=== PATIENT | male | born 1955 | race Caucasian/White ===

== ENCOUNTER 2017-10-14 14:32 | Emergency (ER) | payer MEDICARE, SELFPAY ==
[2017-10-14 14:33] VITALS: BP 100/62; PULSE 106; RESP 18; TEMP 37.7; O2SAT 97; BMI 38.9
[2017-10-14 15:52] LABS: Anion Gap 10 (5-15); BUN 13 mg/dL (7-18); BUN/Creat Ratio 10.1 RATIO (10-20); Calcium,Total 8.9 mg/dL (8.5-10.1); Chloride 102 mmol/L (98-107); Creatinine, Serum 1.29 mg/dL (0.70-1.30); EST Glomerular Filtration Rate 60 mL/min (>60); Est Glom Filt Rate - Afr Amer 73 mL/min (>60); Estimated Creatinine Clearance 62.88 ml/min; Glucose 99 mg/dL (74-106); Potassium 3.3 mmol/L (3.5-5.1); Sodium Level 136 mmol/L (136-145)
[2017-10-14 16:10] LABS: Color, Urine Amber (Yellow); Glucose, Dipstick Normal (Normal); Ketone-Dipstick 15 mg/dl (Negative); Leukocyte Esterase-Dipstick 500 /ul (Negative); Nitrite-Dipstick Positive (Negative); Occult Blood-Urine 25 /ul (Negative); Protein-Dipstick 30 mg/dl (Negative); Urine Bilirubin Dipstick 1 mg/dL (Negative); Urine Clarity Clear (Clear); Urine Urobilinogen 4 mg/dl (Normal)
[2017-10-14 16:11] LABS: Absolute Lymphocyte Count 1.36 X10^3/ul (0.83-4.51); Absolute Neutrophil Count 12.5 X10^3/uL (2.0-7.7); Basophil# 0.02 X10^3/uL; Basophil% 0.1 % (0-1); Eosinophil# 0.06 X10^3/uL; Eosinophils% 0.4 % (0-5); Hematocrit 43.9 % (40-54); Hemoglobin 15.1 g/dl (13.0-16.5); Lymphocyte # 1.36 X10^3/ul (4.0); Lymphocyte % 8.7 % (19-41); Mean Corp Hgb Conc 34.4 g/gl (32-36); Mean Corpuscular Hgb 29.7 pg (27.0-32.0); Mean Corpuscular Volume 86.2 fL (80-94); Mean Platelet Vol. 10.4 fl (6.2-12.0); Monocyte# 1.71 X10^3/uL; Monocyte% 10.9 % (0-10); Neutrophil # 12.46 X10^3/uL (2.7-7.7); Neutrophil % 79.7 % (47-70); Platelet Count 243 K/mm3 (150-450); RBC Distribution Width CV 12.9 % (11.6-14.6); RBC Distribution Width SD 40.9 fl (35.1-43.9); Red Blood Count 5.09 M/mm3 (4.6-6.2); White Blood Count 15.6 K/mm3 (4.4-11.0)
[2017-10-14 16:18] LABS: Differential Indicated SCAN CRITERIA MET; POSITIVE COUNT NO; POSITIVE DIFFERENTIAL YES; POSITIVE MORPHOLOGY NO
[2017-10-14 16:29] LABS: White Blood Cells >100 SEEN /hpf (0-5)
[2017-10-14 16:30] LABS: Bacteria 2+ /hpf (None Seen); Mucous, Urine 3+ /hpf (<or=2+); Red Blood Cells-Urine 0-5 SEEN /hpf (0-5); Squamous Epithelial Cells - UA 0-5 SEEN /hpf (0-5)
[2017-10-14 16:35] LABS: Differential Comment SCANNED
[2017-10-14 16:36] VITALS: BP 114/68; BP 119/75; BP 120/65; PULSE 52; PULSE 84; PULSE 85
[2017-10-14] MEDS: Ondansetron 4 MG/2 ML Vial IV (16:46)
--- NOTE | 2017-10-14 16:50 | ED.VISSUMM ---
- ER Visit Summary Date of Service: 10/14/17 Chief Complaint: Urinary urgency History of Present Illness: The patient is a 62 M with a history of UTI who presents with 2 days of urinary urgency frequency and dysuria. He vomited once last night. He has had nausea today. He reports chills. He was seen at the urgent care and had a temperature 100.2. Reportedly his urine was normal except blood so he was sent here for further evaluation. He denies any abdominal pain back or flank pain. Physical Examination: Temperature 99.9 heart rate 106 Moist mucous membranes Heart regular rhythm slightly tachycardic Lungs are clear Abdomen soft nontender nondistended Test Results: Urinalysis is consistent with UTI. He does have 500 leukocyte esterase positive nitrates greater than 100 WBCs and 2+ bacteria. Serum laboratory studies notable for white blood cell count 15.6. Orthostatic vital signs are negative. Emergency Department Course and Treatment: Patient was on IV Zofran and tolerated a p.o. challenge. Repeat vital signs are normal and orthostatic vital signs are negative. Discussed hospital observation as outpatient management. The patient would prefer to go home. He was given prescriptions for Bactrim, Pyridium, Zofran. He understands to return for new or worsening symptoms and was instructed on specific signs and symptoms to monitor for. He was discharged. Treatment Plan: [] Disposition: Discharge Impression: UTI This note was generated with GoInstant dictation software. It may contain incorrect words, spelling, and punctuation that were not noted in review of the chart prior to signing ED Disposition - Plan for ED Patient: Chief Complaint: Complaint Referrals: Mey Cornelius MD [Primary Care Provider] -
--- NOTE | 2017-10-14 16:54 | ED.DEP ---
ED Disposition - Plan for ED Patient: Chief Complaint: Complaint Instructions: ED UTI Cystitis Male Prescriptions: Ondansetron [Zofran Odt] 4 mg PO Q8H PRN PRN #10 tab PRN Reason: Nausea Phenazopyridine HCl [Pyridium] 200 mg PO BID PRN PRN #10 tab PRN Reason: Pain Smz/Tmp Ds [Bactrim Ds] 1 tab PO BID #14 tab Referrals: Mey Cornelius MD [Primary Care Provider] -
[2017-10-14 17:02] VITALS: BP 124/66; PULSE 78; RESP 18
== END 2017-10-14 17:10 | disposition home or self-care (01) ==
PROVIDERS: Emergency Provider Emergency Medicine; Family Provider Internal Medicine; PCP Internal Medicine
DX: N39.0 Urinary tract infection, site not specified (principal); Z87.440 Personal history of urinary (tract) infections; I10 Essential (primary) hypertension; E78.00 Pure hypercholesterolemia, unspecified; G20 Parkinson's disease; M54.9 Dorsalgia, unspecified; M54.2 Cervicalgia; G89.29 Other chronic pain; Z79.899 Other long term (current) drug therapy
CPT/HCPCS: 80048; 81001; 85025; 87086; 87088; 87186; 96374; 99285; A4216; J2405

== ENCOUNTER 2018-03-01 18:56 | Emergency (ER) | payer MEDICARE, OTHER, SELFPAY ==
[2018-03-01 18:57] VITALS: BP 158/78; PULSE 81; RESP 14; TEMP 36.2; O2SAT 98; BMI 39.4
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
[2018-03-01 22:28] VITALS: BP 124/71; PULSE 66; RESP 16
== END 2018-03-01 22:29 | disposition home or self-care (01) ==
LOC: ED 20:50
PROVIDERS: Emergency Provider Emergency Medicine; Family Provider Internal Medicine; PCP Internal Medicine
DX: S16.1XXA Strain of muscle, fascia and tendon at neck level, initial encounter (principal); F43.10 Post-traumatic stress disorder, unspecified; M54.9 Dorsalgia, unspecified; M25.559 Pain in unspecified hip; Z87.891 Personal history of nicotine dependence; Z79.891 Long term (current) use of opiate analgesic; Z79.899 Other long term (current) drug therapy; V43.62XA Car passenger injured in collision with other type car in traffic accident, initial encounter; Y93.I9 Activity, other involving external motion; Y92.410 Unspecified street and highway as the place of occurrence of the external cause; Y99.8 Other external cause status
CPT/HCPCS: 70450; 72050; 99282

== ENCOUNTER → 2018-03-21 14:18 | Outpatient (CLI) | payer MEDICARE, SELFPAY ==
[2018-03-21 15:39] LABS: Anion Gap 7 (5-15); BUN 21 mg/dL (7-18); BUN/Creat Ratio 19.1 RATIO (10-20); Calcium,Total 9.2 mg/dL (8.5-10.1); Chloride 105 mmol/L (98-107); EST Glomerular Filtration Rate 72 mL/min (>60); Est Glom Filt Rate - Afr Amer 88 mL/min (>60); Glucose 103 mg/dL (74-106); Magnesium 2.2 mg/dL (1.6-2.6); Phosphorus 3.5 mg/dL (2.5-4.9); Potassium 3.3 mmol/L (3.5-5.1); Sodium Level 141 mmol/L (136-145); Vitamin B12 342 pg/mL (211-911)
== END ==
PROVIDERS: Family Provider Internal Medicine; PCP Internal Medicine; Visit Provider Nurse Practitioner Acute Care
DX: G20 Parkinson's disease (principal); R20.2 Paresthesia of skin; R20.0 Anesthesia of skin
CPT/HCPCS: 36415; 80048; 82607; 82746; 83735; 84100

== ENCOUNTER 2018-04-14 16:00 | Outpatient (RCR) | payer OTHER, MEDICARE, SELFPAY ==
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
--- NOTE | 2018-05-04 11:51 | HP.PTDCNRP_ITS ---
HP - Discharge Summary (1) - Patient Information LUCILLE GARCIA was seen in my office for initial evaluation on 03/24/18. The following Plan of Care was established for this patient: Initial Frequency: Monthly Initial Duration: 3 Months - Anticipated Interventions Patient/Client Instruction: Educate patient on: Condition, Plan of Care For the Purpose of:: To improve ability of physical actions for home/community/ work/leisure, To improve gait and locomotor functions, To improve health of tissue, To improve safety Therapeutic Exercise to Include: Strength training, Balance training, Flexibilty training, Active ROM For the Purpose of:: To improve ability of physical actions for home/community/ work/leisure, To improve gait and locomotor functions This patient was last seen in our office 03/24/18. Pertinent comments regarding their Physical therapy will appear below: Pt called to cancel as he is having home PT now instead. At this point I will be discontinuing this patient from physical therapy. I would be happy to see this patient again in the future if found appropriate by the physician. Thank you! Zack King, DPT, OC
--- NOTE | 2018-05-05 16:20 | HP.SP.DC_ITS ---
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 At this time, the Patient has cancelled all sessions; will discharge from the caseload at this time, though would gladly re-initiate the intervention cycle after a physician?s order is obtained and a re-evaluation is completed.
== END 2018-04-14 19:00 | disposition home or self-care (01) ==
LOC: SP 16:00
PROVIDERS: Family Provider Internal Medicine; PCP Internal Medicine; Visit Provider Nurse Practitioner Acute Care
DX: G20 Parkinson's disease (principal); R26.0 Ataxic gait; R13.12 Dysphagia, oropharyngeal phase; R47.02 Dysphasia
CPT/HCPCS: 92523; 92610; 97110; 97162

== ENCOUNTER 2019-03-31 18:54 | Emergency (ER) | payer MEDICARE, SELFPAY ==
[2019-03-31 18:55] VITALS: BP 124/72; PULSE 74; RESP 16; TEMP 37.2; O2SAT 95; BMI 38.0
--- NOTE | 2019-03-31 20:38 | US_ITS ---
STUDY: VENOUS DOPPLER ULTRASOUND - RIGHT LOWER EXTREMITY REASON FOR EXAM: Male, 63 years old. Swelling TECHNIQUE: Ultrasound evaluation of the deep vein system to include schmidt-scale imaging and compression was performed. Schmidt-scale imaging and Doppler sonographic evaluation, including duplex spectral analysis and qualitative color flow sonography, was performed. COMPARISON: None. FINDINGS: Common Femoral Vein: Normal compression, spontaneity and augmentation. Normal color Doppler. Common Femoral Vein/Greater Saphenous Junction: Normal compression, spontaneity and augmentation. Normal color Doppler. Deep Femoral Vein: Normal compression, spontaneity and augmentation. Normal color Doppler. Femoral Proximal: Normal compression, spontaneity and augmentation. Normal color Doppler. Femoral Middle: Normal compression, spontaneity and augmentation. Normal color Doppler. Femoral Distal: Normal compression, spontaneity and augmentation. Normal color Doppler. Popliteal Vein: Normal compression, spontaneity and augmentation. Normal color Doppler. Posterior Tibial Vein: Normal compression, spontaneity and augmentation. Normal color Doppler. Peroneal Vein: Normal compression, spontaneity and augmentation. Normal color Doppler. Incidental finding of small anechoic area in the calf possibly representing hematoma. US/Venous Duplex Imag/Limited/Uni IMPRESSION: No evidence for deep venous thrombosis. Electronically Signed: Gary Goodman MD at 21:19 EDT , Service support ,
--- NOTE | 2019-03-31 21:25 | ED.VISSUMM ---
- ER Visit Summary Date of Service: 03/31/19 Chief Complaint: Right leg pain History of Present Illness: The patient is a 63 M who presents with right leg pain that has been getting worse over the past 4 days. Patient states he hit his right leg on a trailer hitch. Patient states the pain and swelling is gotten worse. Patient went to urgent care today and was referred to the emergency department for possible DVT. Patient denies any fevers or chills. Patient denies any paresthesias or weakness. Patient denies any other injuries. Physical Examination: Vital signs are stable. Patient is afebrile. Patient is in no acute distress. Skin is warm and dry. There is some ecchymosis over the anterior aspect of the right leg. There is some edema. There is some mild tenderness over the right calf. Pedal pulses are equal bilaterally. There are no sensory deficits noted. There is some pain with dorsiflexion of the ankle. Test Results: Venous duplex of the right lower extremity was obtained. There is no evidence of DVT. Emergency Department Course and Treatment: Patient was instructed to ice and elevate the right leg. Patient was instructed to follow-up with his primary care physician in 5 to 7 days. Patient understood and was agreeable with the plan. All questions were answered. Disposition: Discharge home Impression: Right leg contusion This note was generated with [employer] dictation software. It may contain incorrect words, spelling, and punctuation that were not noted in review of the chart prior to signing ED Disposition - Plan for ED Patient: Disposition: Home or Assisted Living Diagnosis: Contusion of right lower leg, initial encounter Instructions: CONTUSION, Lower Extremity Referrals: Mey Cornelius MD [Primary Care Provider] - 5-7 Days
== END 2019-03-31 21:44 | disposition home or self-care (01) ==
PROVIDERS: Emergency Provider Emergency Medicine; Family Provider Internal Medicine; PCP Internal Medicine
DX: S80.11XA Contusion of right lower leg, initial encounter (principal); W22.8XXA Striking against or struck by other objects, initial encounter; Y93.9 Activity, unspecified; Y92.9 Unspecified place or not applicable; M54.9 Dorsalgia, unspecified; M54.2 Cervicalgia; G89.29 Other chronic pain; G20 Parkinson's disease; Z79.899 Other long term (current) drug therapy
CPT/HCPCS: 93971; 99282

== ENCOUNTER → 2019-04-07 | Outpatient (CLI) | payer MEDICARE, SELFPAY ==
[2019-03-31 18:55] VITALS: BMI 38.0
--- NOTE | 2019-04-07 11:11 | RAD_ITS ---
STUDY: X-RAY - RIGHT ANKLE REASON FOR EXAM: Male, 63 years old. Pain. TECHNIQUE: 4 view(s) of the ankle. COMPARISON: None. FINDINGS: Normal visualized distal tibia and fibula. Normal medial and lateral malleoli. Normal tibiotalar articulation and ankle mortise. Normal visualized talus and calcaneus. There are degenerative changes of the midfoot. The soft tissue structures are unremarkable. RAD/Ankle min 3 Views IMPRESSION: Degenerative changes. Electronically Signed: Melinda Chavez MD at 17:02 EDT Tel , Service support ,
--- NOTE | 2019-04-07 11:11 | RAD_ITS ---
STUDY: X-RAY - RIGHT FOOT CLINICAL: Male, 63 years old. Right lower extremity pain and swelling after falling off a truck 2 weeks ago. TECHNIQUE: 3 view(s) of the foot. COMPARISON: None. FINDINGS: Normal talus, calcaneus, and tarsal bones. The intertarsal articulations are within normal limits. Normal metatarsi. There is degenerative arthrosis of the metatarsophalangeal joint of the hallux . Normal tibial and fibular sesamoid bones. Normal interphalangeal joint of the great toe. Normal phalanges of the great toe. Normal second through fifth metatarsophalangeal joints. Normal interphalangeal joints and phalanges of the lesser toes. There is soft tissue swelling. There is a small ankle effusion. There is no demonstrated fracture. RAD/Foot min 3 Views IMPRESSION: 1. No radiographic evidence for acute or healing fracture. 2. 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 3. Calcaneal spurs. Electronically Signed: Tammi Chapin MD at 6:30 EDT , Service support ,
--- NOTE | 2019-04-07 11:15 | RAD_ITS ---
STUDY: X-RAY - RIGHT TIBIA AND FIBULA REASON FOR EXAM: Male, 63 years old. Pain in mid right lower leg. TECHNIQUE: 4 view(s) of the tibia and fibula were obtained. COMPARISON: None. FINDINGS: Normal visualized tibia. Normal visualized fibula. The soft tissue structures are unremarkable. RAD/Tibia & Fibula 2 Views IMPRESSION: No acute osseous injury. Electronically Signed: Melinda Chavez MD at 17:09 EDT Tel , Service support ,
== END | disposition home or self-care (01) ==
LOC: RAD 11:09
PROVIDERS: Family Provider Internal Medicine; PCP Internal Medicine; Referring Provider Nurse Practitioner Family; Visit Provider Nurse Practitioner Family
DX: M79.661 Pain in right lower leg (principal); M79.671 Pain in right foot; W19.XXXA Unspecified fall, initial encounter
CPT/HCPCS: 73590; 73610; 73630

== ENCOUNTER 2019-12-16 19:09 | Emergency (ER) | payer MEDICARE, SELFPAY ==
[2019-12-16 19:10] VITALS: BP 109/36; PULSE 61; RESP 18; TEMP 36.4; O2SAT 93; BMI 38.7
[2019-12-16 19:24] VITALS: O2SAT 97
[2019-12-16 19:25] VITALS: BP 122/74; PULSE 21; RESP 27; TEMP 36.6; O2SAT 97
--- NOTE | 2019-12-16 19:26 | EKG12_ITS ---
Test Reason : DYSRHYTHMIA Blood Pressure : / mmHG Vent. Rate : 084 BPM Atrial Rate : 084 BPM P-R Int : 126 ms QRS Dur : 086 ms QT Int : 362 ms P-R-T Axes : 059 050 025 degrees QTc Int : 427 ms Normal sinus rhythm with sinus arrhythmia Normal ECG Confirmed by DAVI CARLSON, ELMIRA ([id number]), features editor CHRIS RAMIREZ ([id number] on 12/18/2019 10:04:14 AM Referred By: MAI Confirmed By:ELMIRA TOMLINSON MD
--- NOTE | 2019-12-16 19:28 | ED.DCSUM_ITS ---
- ER Visit Summary Date of Service: 12/16/19 Chief Complaint: Shortness of breath and cough History of Present Illness: The patient is a 64 M past medical history of hypertension and Parkinson's disease. Patient's had prior appendectomy and cervical fusion. He states for the last week he has had a nonproductive cough. He believes he was started on Augmentin yesterday. States has had subjective fever and diarrhea for 3 days. Denies vomiting. No hemoptysis. No chest pain. No prior DVT or PE. No calf pain or swelling. has similar symptoms at home. Son had similar symptoms. Physical Examination: Older male no acute distress vital signs stable afebrile. Pulse ox 93% on room air no hypoxia. H EENT exam unremarkable. Neck nontender. Lungs clear to auscultation bilaterally. No rales, rhonchi or wheezing. Equal symmetrical. No distress. Heart regular rate and rhythm no murmur. Abdomen soft nontender. Extremities moves all 4. Calves are nontender without edema or cords. Neurologically is awake and alert with no focal motor deficits. Test Results: Chest x-ray shows a right midlung opacity consistent with infiltrate. This will be treated as pneumonia. EKG sinus rhythm rate [address] acute signs of CT or ischemia. CBC white count of 6. Hemoglobin 15. Electrolytes unremarkable potassium 3.4. Creatinine 1.35 normal gap. Troponin normal. I did speak to [facility] they have okayed the patient for COVID testing which is been done and sent. That will return in 24 to 48 hours. Emergency Department Course and Treatment: Patient with cough and shortness of breath. Family members with similar symptoms at home. Viral URI versus pneumonia versus rule out COVID. Due to the infiltrate in the right middle lobe be instructed to continue on his current antibiotic Augmentin which he is taken twice a day. I did explain to the patient this still could be COVID-19. Treatment Plan: To new his home antibiotic Augmentin.. Follow-up with his doctor this week. Return if feeling worse. Disposition: Discharge Impression: Acute cough with shortness of breath secondary to community-acquired right middle lobe pneumonia Rule out COVID This note was generated with [employer] software. It may contain incorrect words, spelling, and punctuation that were not noted in review of the chart prior to signing ED Disposition - Plan for ED Patient: Disposition: Home or Assisted Living Instructions: Pneumonia Prescriptions: levoFLOXacin tablet [Levaquin tablet] 750 mg PO DAILY #4 tab Prescription Printed Referrals: Mey Cornelius MD [Primary Care Provider] - 3-5 Days Additional Instructions: Plenty of fluids and rest. Tylenol for any fever. The antibiotic Levaquin once a day for 4 more days. You were given your first dose here. Take it tomorrow after lunch. Chest x-ray looks like an early right middle lobe pneumonia. This is why retreating with antibiotics. This does not rule out the possibility of this s till being COVID-19. That test was sent to the [facility] and the results should be back in 24 to 48 hours. Follow-up with your doctor in the next several days. Return to the emergency department if you are feeling worse.
--- NOTE | 2019-12-16 19:35 | RAD_ITS ---
STUDY: X-RAY CHEST REASON FOR EXAM: Male, 64 years old. fever, cough, SOB x1 week. dizzy and weak. n/v/d x3 days TECHNIQUE: Single AP portable view of the chest. COMPARISON: None. FINDINGS: No pleural effusion. Faint opacity in the right midlung, concerning for pneumonia. The lungs are otherwise clear. Normal size heart. Normal mediastinum and janel. Normal visualized pulmonary arteries. Normal visualized aortic arch and descending thoracic aorta. Normal visualized thoracic spine. Normal visualized ribs, clavicles, and shoulders. There is no demonstrated abnormality of the visualized soft tissue structures of the upper abdomen. RAD/Chest 1 View (Portable) IMPRESSION: Faint right midlung opacity, concerning for pneumonia. Typical and atypical etiologies should be considered. Electronically Signed: Yue Valderrama MD at 20:04 EDT Tel , Service support ,
[2019-12-16 19:38] LABS: Absolute Lymphocyte Count 0.62 X10^3/uL (0.83-4.51); Absolute Neutrophil Count 4.7 X10^3/uL (2.0-7.7); Basophil# 0.01 X10^3/uL; Basophil% 0.2 % (0-1); Eosinophil# 0.08 X10^3/uL; Eosinophils% 1.3 % (0-5); Hematocrit 45.7 % (40-54); Hemoglobin 15.8 g/dL (13.0-16.5); Lymphocyte # 0.62 X10^3/ul (4.0); Lymphocyte % 10.1 % (19-41); Mean Corp Hgb Conc 34.6 g/dL (32-36); Mean Corpuscular Volume 86.7 fL (80-94); Mean Platelet Vol. 10.5 fl (6.2-12.0); Monocyte# 0.69 X10^3/uL; Monocyte% 11.3 % (0-10); NRBC Flagged by Analyzer 0 % (0-5); Neutrophil % 76.8 % (47-70); POSITIVE MORPHOLOGY YES; Platelet Count 199 K/mm3 (150-450); RBC Distribution Width CV 12.4 % (11.6-14.6); RBC Distribution Width SD 39.4 fl (35.1-43.9); Red Blood Count 5.27 M/mm3 (4.6-6.2); White Blood Count 6.1 K/mm3 (4.4-11.0)
--- NOTE | 2019-12-16 19:41 | NURSING ---
called the [facility] to approve for testing- covid 19 proper paperwork filled out, respiratory is aware and the microbiology speciman submission form has been completed and will be sent with the sample.
[2019-12-16 19:56] LABS: Anion Gap 9 (5-15); BUN 16 mg/dL (7-18); BUN/Creat Ratio 11.9 RATIO (10-20); Calcium,Total 8.8 mg/dL (8.5-10.1); Chloride 104 mmol/L (98-107); Creatinine, Serum 1.35 mg/dL (0.70-1.30); EST Glomerular Filtration Rate 57 mL/min (>60); Est Glom Filt Rate - Afr Amer 69 mL/min (>60); Estimated Creatinine Clearance 58.58 ml/min; Glucose 122 mg/dL (74-106); Potassium 3.4 mmol/L (3.5-5.1); Sodium Level 137 mmol/L (136-145)
[2019-12-16 19:57] VITALS: BP 134/86; PULSE 83; RESP 19; O2SAT 94
[2019-12-16 20:01] LABS: Differential Indicated SCAN CRITERIA MET
[2019-12-16 20:31] VITALS: BP 133/74; PULSE 82; RESP 20; TEMP 36.6; O2SAT 95
--- NOTE | 2019-12-16 20:32 | DCINST.ED_ITS ---
ED Disposition - Plan for ED Patient: Disposition: Home or Assisted Living Instructions: Pneumonia Prescriptions: levoFLOXacin tablet [Levaquin tablet] 750 mg PO DAILY #4 tab Prescription Printed Referrals: Mey Cornelius MD [Primary Care Provider] - 3-5 Days Additional Instructions: Plenty of fluids and rest. Tylenol for any fever. Continue your current home antibiotic Augmentin twice a day till gone. Chest x-ray looks like an early right middle lobe pneumonia. This is why retreating with antibiotics. This does not rule out the possibility of this still being COVID-19. That test was sent to the [facility] and the results should be back in 24 to 48 hours. Follow-up with your doctor in the next several days. Return to the emergency department if you are feeling worse.
[2019-12-16 20:54] VITALS: BP 118/87; PULSE 86; RESP 19; O2SAT 96
--- NOTE | 2019-12-17 18:29 | ED.RN ---
pt contacted about positive covid test
== END 2019-12-16 20:54 | disposition home or self-care (01) ==
PROVIDERS: Emergency Provider Emergency Medicine; PCP Internal Medicine
DX: U07.1 COVID-19 (principal); J12.89 Other viral pneumonia; G20 Parkinson's disease; I10 Essential (primary) hypertension; Z87.891 Personal history of nicotine dependence; Z79.899 Other long term (current) drug therapy
CPT/HCPCS: 71045; 80048; 84484; 85025; 87635; 93005; 99285; G2023; U0004

== ENCOUNTER → 2019-12-22 | Outpatient (CLI) | payer MEDICARE, SELFPAY ==
[2019-12-16 19:10] VITALS: BMI 38.7
--- NOTE | 2019-12-22 09:00 | RAD_ITS ---
STUDY: X-RAY CHEST REASON FOR EXAM: Male, 64 years old. Pneumonia, positive COVID-19 -- cough, SOB TECHNIQUE: PA and lateral views of the chest. COMPARISON: Comparison is made with prior examination dated December 16, 2019. FINDINGS: Since prior study, there has been progressive ill-defined infiltrates in both lungs preferentially in the peripheral distribution in keeping with the patient''s history of positive for COVID 19. There is no demonstrated pleural abnormality. Normal size heart. Normal mediastinum and janel. Normal visualized pulmonary arteries. Normal visualized aortic arch and descending thoracic aorta. There are diffuse degenerative changes of the visualized thoracic spine. Prior fusion in the lower cervical spine. Normal visualized ribs, clavicles, and shoulders. There is no demonstrated abnormality of the visualized soft tissue structures of the upper abdomen. RAD/Chest PA and Lateral IMPRESSION: Progressive bilateral infiltrates preferentially in a peripheral distribution in keeping with the diagnosis of COVID 19. Electronically Signed: John Rodríguez, at 9:40 EDT , Service support ,
== END | disposition home or self-care (01) ==
LOC: RAD 09:13
PROVIDERS: PCP Internal Medicine; Referring Provider Clinical Nurse Specialist; Visit Provider Clinical Nurse Specialist
DX: J18.9 Pneumonia, unspecified organism (principal)
CPT/HCPCS: 71046

== ENCOUNTER 2020-11-07 16:59 | Outpatient (RCR) | payer MEDICARE, SELFPAY ==
[2020-11-07] MEDS: COVID-19 VACC, MRNA(PFIZER)/PF 30 MCG/0.3 ML SYRINGE IM (16:02)
[2020-11-28] MEDS: COVID-19 VACC, MRNA(PFIZER)/PF 30 MCG/0.3 ML SYRINGE IM (15:28)
== END 2020-11-12 23:59 ==
LOC: IMMUN 16:59
PROVIDERS: PCP Internal Medicine; Visit Provider Family Medicine
DX: Z23 Encounter for immunization (principal)
CPT/HCPCS: 0001A; 0002A; 91300

== ENCOUNTER 2021-03-16 16:10 | Observation (INO) | payer MEDICARE, SELFPAY ==
[2021-03-16] VITALS (11 sets, daily range): BP systolic 118–144; BP diastolic 82–111; PULSE 65–112; RESP 15–18; TEMP 36.4–37.3; O2SAT 95–98; BMI 40.7; BMI 40.8
--- NOTE | 2021-03-16 16:35 | EKG12_ITS ---
Test Reason : CP Blood Pressure : / mmHG Vent. Rate : 115 BPM Atrial Rate : 319 BPM P-R Int : 000 ms QRS Dur : 086 ms QT Int : 354 ms P-R-T Axes : 086 057 074 degrees QTc Int : 489 ms Atrial flutter with variable A-V block with premature ventricular or aberrantly conducted complexes Abnormal ECG Confirmed by LUISANA CARLSON, MICHELLE ([id number]), legal editor MARNIE JURADO ([id number]) on 03/18/2021 9:44:35 AM Referred By: Marko Guerrero Confirmed By:MICHELLE LIEBERMAN MD
--- NOTE | 2021-03-16 16:38 | EDS_ITS ---
HPI History of Present Illness Chief Complaint: Chest Pain Informant: patient Narrative Narrative: Patient presents with episodes of chest pain. This first started about 3 weeks ago. There is nothing specific that incites them. The pain is generally a very dull achy feeling in the left upper chest. It does not radiate. He sometimes feels short of breath with this. He has not been nauseated. He did have an episode of diaphoresis recently but that was new. He has minimal symptoms right now. He does not feel palpitations or tachycardia. He has no history of atrial fibrillation or atrial flutter. Patient quit smoking 20 years ago. He does have high blood pressure and cholesterol. No known heart disease. Prior stress test was years ago. No heart cath. He does have family history of heart disease. He has cousins that have had bypass or heart attacks in their 40s. His mother evidently at 55 with what sounds like a heart attack. He has no recent travel, surgery, immobilization, personal family history of DVT or PE. Patient did have Covid in November and has been generally tired since then. Nothing specifically makes his symptoms better or worse. [facility] Medical History Diabetes HTN (hypertension) Parkinson disease Parkinson disease Home Medications atenolol-chlorthalidone 0.5 tab PO DAILY 10/14/17 [History Last Taken Unknown] carbidopa-levodopa 1 tab PO TID 10/14/17 [History Last Taken Unknown] esomeprazole magnesium [Nexium] 40 mg PO DAILY 10/14/17 [History Last Taken Unknown] lisinopril [Zestril] 10 mg PO DAILY 10/14/17 [History Last Taken Unknown] simvastatin 20 mg PO QHS 10/14/17 [History Last Taken Unknown] ascorbic acid (vitamin C) [Vitamin C] 1 g PO DAILY 03/16/21 [History Last Taken Unknown] aspirin 81 mg PO DAILY 03/16/21 [History Last Taken Unknown] cholecalciferol (vitamin D3) [Vitamin D3] 25 mcg PO DAILY 03/16/21 [History Last Taken Unknown] omega-3 fatty acids-vitamin E [Fish Oil] 1 cap PO DAILY 03/16/21 [History Last Taken Unknown] oxycodone myristate [Xtampza ER] 18 - 36 mg PO DAILY 03/16/21 [History Last Taken Unknown] Allergy/AdvReac Type Severity Reaction Status Date / Time fentanyl Allergy Rash Verified 12/16/19 19:12 Iodinated Contrast Media Allergy Rash Verified 12/16/19 19:12 [CONTRASTS] morphine Allergy Rash Verified 12/16/19 19:12 Surgical History History of appendectomy Social History Smoking Status: Former smoker ROS ROS ED Constitutional Constitutional ED: Denies chills or fever(s) Eyes Eyes: Denies blurry vision ENT ENT ED: Denies rhinorrhea or sore throat Cardiovascular Cardiovascular: Reports as per HPI and chest pain; Denies palpitations or racing heartbeat Respiratory/Chest Respiratory/Chest: Reports dyspnea; Denies cough Gastrointestinal Gastrointestinal: Denies abdominal pain, nausea or vomiting Genitourinary Genitourinary ED: Denies dysuria Musculoskeletal Musculoskeletal: Denies back pain or neck pain Integumentary Denies rash Neurologic Neurologic: Denies headache(s), paresthesias or weakness Endocrine Endocrinology: Denies polydipsia or polyuria Hematologic/Lymphatic Hematologic/Lymphatic: Denies easy bruising Allergic/Immunologic Allergic/Immunologic ED: Denies urticaria EXAM Physical Exam Const Vital Signs: 03/16/21 16:10 03/16/21 16:11 03/16/21 16:44 Temperature 99.2 F H 99.2 F H Temperature Source Temporal Temporal Pulse Rate 74 65 Respiratory Rate 16 18 Blood Pressure 122/111 H 122/111 H Blood Pressure Mean 114 114 Pulse Ox 98 97 95 Oxygen Delivery Method Room Air Room Air Nasal Cannula Oxygen Flow Rate (L/min) 2 03/16/21 16:53 03/16/21 17:15 03/16/21 18:03 Temperature Temperature Source Pulse Rate 112 H 101 H 79 Respiratory Rate 16 16 15 Blood Pressure 144/84 H 130/83 H 135/91 H Blood Pressure Mean 104 98 105 Pulse Ox 98 97 97 Oxygen Delivery Method Nasal Cannula Nasal Cannula Nasal Cannula Oxygen Flow Rate (L/min) 2 2 Positive well nourished and well developed General Appearance ED: well developed and NAD HEENT normocephalic Eyes EOMs intact bilaterally Chest Wall inspection of chest normal Resp normal respiratory effort and clear to auscultation bilaterally Effort and Inspection: Negative for respiratory distress Auscultation: Negative for rales, rhonchi or wheezes Cardio no murmurs Rate: tachycardic and other Other Details: Heart is irregularly irregular. He appears to be atrial flutter with variable block on the monitor. GI normal to inspection, nondistended, normoactive bowel sounds, soft to palpation, non-tender and non-distended Back/Spine no CVA tenderness Extremity normal to inspection General Extremety ED: Negative for edema or tenderness General Extremity: Negative for edema Neuro Sensorium / Orientation: awake and alert Psych mental status grossly normal Skin no rashes or lesions noted MDM MDM MDM Narrative Medical decision making narrative: Patient CBC shows no acute process. Electrolytes show mildly decreased potassium that will be replaced. TSH is normal. Troponin is normal at this time. Chest x-ray shows no acute process. Patient is given IV fluids potassium and juice doses of atenolol. Heart rate is down closer to 100. The highest I seen is about 118. With his risk factors, chest pain, new onset flutter I think he does need to come in for further evaluation and management. Hospitalist is paged. His [id number] score is 1 for blood pressure. Lab Data Labs: Laboratory Results - last 24 hr 03/16/21 03/16/21 16:20 16:20 WBC 7.9 RBC 5.14 Hgb 15.1 Hct 45.1 MCV 87.7 MCH 29.4 MCHC 33.5 RDW Std Deviation 40.3 RDW Coeff of Mele 12.5 Plt Count 242 MPV 10.6 Immature Gran % (Auto) 0.400 Neut % (Auto) 70.8 H Lymph % (Auto) 20.7 Hemphill % (Auto) 6.2 Eos % (Auto) 1.5 Baso % (Auto) 0.4 Absolute Neuts (auto) 5.6 Absolute Lymphs (auto) 1.64 Nucleated RBC % 0 Sodium 139 Potassium 3.3 L Chloride 107 Carbon Dioxide 24.0 Anion Gap 8 BUN 19 H Creatinine 1.12 Estim Creat Clear Calc 69.70 Est GFR (MDRD) Af Amer 85 Est GFR (MDRD) Non-Af 70 BUN/Creatinine Ratio 17.0 Glucose 152 H Calcium 8.5 Troponin I High Sens 7.4 TSH 1.68 Radiography Diagnostic Testing: Radiology Impression Chest X-Ray 03/16/21 16:40 IMPRESSION: No airspace consolidation or pleural effusion. No acute cardiopulmonary process. Electronically Signed: Gaston Frank MD (Brooks) at 16:50 EDT , Service support , EKG Initial EKG: Interpretation: Atrial Flutter Comments: EKG done for tachycardia and chest pain read by me shows atrial flutter with overall rate of 115. There is variable block. No ventricular dysrhythmias seen. No evidence of acute ST elevation or depression. QRS duration is normal. QTc is a bit long at 489 ms. This is a change from 16 December 2019. Discharge Plan Dx/Rx/DC Orders Clinical Impression: Chest pain, Atrial flutter Disposition Disposition: Acute Care Hospital [facility]
--- NOTE | 2021-03-16 16:40 | RAD_ITS ---
STUDY: X-RAY CHEST REASON FOR EXAM: Male, 65 years old. Intermittent chest pain for 3 or 4 weeks radiating to the jaw TECHNIQUE: AP COMPARISON: 12/22/2019 FINDINGS: Fusion hardware of the lower cervical spine. EKG leads project over the chest. Resolution of pulmonary infiltrates evident on the prior study. No airspace consolidation. There is no demonstrated pleural abnormality. Normal size heart. Normal mediastinum and janel. Normal visualized pulmonary arteries. Normal visualized aortic arch and descending thoracic aorta. No acute bony process. There is no demonstrated abnormality of the visualized soft tissue structures of the upper abdomen. RAD/Chest 1 View (Portable) IMPRESSION: No airspace consolidation or pleural effusion. No acute cardiopulmonary process. Electronically Signed: Gaston Frank MD (Brooks) at 16:50 EDT , Service support ,
[2021-03-16] MEDS: Aspirin 81 MG TAB.CHEW 324 MG PO (16:45)
[2021-03-16] MEDS: Metoprolol Tartrate 5 MG/5 ML Vial IV ×2 (16:46→17:45)
[2021-03-16 16:49] LABS: Absolute Lymphocyte Count 1.64 X10^3/uL (0.83-4.51); Absolute Neutrophil Count 5.6 X10^3/uL (2.0-7.7); Basophil# 0.03 X10^3/uL; Basophil% 0.4 % (0-1); Eosinophil# 0.12 X10^3/uL; Eosinophils% 1.5 % (0-5); Hematocrit 45.1 % (40-54); Hemoglobin 15.1 g/dL (13.0-16.5); Lymphocyte # 1.64 X10^3/ul (0.83-4.51); Lymphocyte % 20.7 % (19-41); Mean Corp Hgb Conc 33.5 g/dL (32-36); Mean Corpuscular Hgb 29.4 pg (27.0-32.0); Mean Corpuscular Volume 87.7 fL (80-94); Mean Platelet Vol. 10.6 fl (6.2-12.0); Monocyte# 0.49 X10^3/uL; Monocyte% 6.2 % (0-10); NRBC Flagged by Analyzer 0 % (0-5); Neutrophil # 5.62 X10^3/uL (2.7-7.7); Neutrophil % 70.8 % (47-70); Platelet Count 242 K/mm3 (150-450); RBC Distribution Width CV 12.5 % (11.6-14.6); RBC Distribution Width SD 40.3 fl (35.1-43.9); Red Blood Count 5.14 M/mm3 (4.6-6.2); White Blood Count 7.9 K/mm3 (4.4-11.0)
[2021-03-16 17:22] LABS: Anion Gap 8 (5-15); BUN 19 mg/dL (7-18); Calcium,Total 8.5 mg/dL (8.5-10.1); Chloride 107 mmol/L (98-107); Creatinine, Serum 1.12 mg/dL (0.70-1.30); EST Glomerular Filtration Rate 70 mL/min (>60); Est Glom Filt Rate - Afr Amer 85 mL/min (>60); Glucose 152 mg/dL (74-106); Potassium 3.3 mmol/L (3.5-5.1); Sodium Level 139 mmol/L (136-145); Thyroid Stim Hormone (TSH) 1.68 uIU/mL (0.358-3.74); Troponin-I HS 7.4 pg/mL (3.0-78.5)
[2021-03-16] MEDS: Potassium Chloride Oral Tablet 20 MEQ 40 MEQ PO (17:45)
[2021-03-16] MEDS: 0.9% Normal Saline 1,000 ML 999 ML IV (17:45)
--- NOTE | 2021-03-16 18:09 | PCM.HP.STD ---
HPI - General HPI Narrative LUCILLE GARCIA, is a 65 M who presents to the hospital with intermittent chest pain over the last 3 weeks. He does not have a good story as to when it starts or why it gets better but it comes and goes periodically no significant shortness of breath or lightheadedness. He describes it as a deep pain to the left side of his chest but that it does not radiate anywhere. He does have intense family history of heart disease mother is a for signs of her high chest pain. In the ER he had an EKG which demonstrated a flutter and he was in a heart rate of about 115 which he denies feeling any palpitations per report. Initial troponin was unremarkable. [facility] Medical History Diabetes HTN (hypertension) Parkinson disease Parkinson disease Home Medications atenolol-chlorthalidone 0.5 tab PO DAILY 10/14/17 [History Last Taken Unknown] carbidopa-levodopa 1 tab PO TID 10/14/17 [History Last Taken Unknown] esomeprazole magnesium [Nexium] 40 mg PO DAILY 10/14/17 [History Last Taken Unknown] lisinopril [Zestril] 10 mg PO DAILY 10/14/17 [History Last Taken Unknown] simvastatin 20 mg PO QHS 10/14/17 [History Last Taken Unknown] ascorbic acid (vitamin C) [Vitamin C] 1 g PO DAILY 03/16/21 [History Last Taken Unknown] aspirin 81 mg PO DAILY 03/16/21 [History Last Taken Unknown] cholecalciferol (vitamin D3) [Vitamin D3] 25 mcg PO DAILY 03/16/21 [History Last Taken Unknown] omega-3 fatty acids-vitamin E [Fish Oil] 1 cap PO DAILY 03/16/21 [History Last Taken Unknown] oxycodone myristate [Xtampza ER] 18 - 36 mg PO DAILY 03/16/21 [History Last Taken Unknown] Allergy/AdvReac Type Severity Reaction Status Date / Time fentanyl Allergy Rash Verified 12/16/19 19:12 Iodinated Contrast Media Allergy Rash Verified 12/16/19 19:12 [CONTRASTS] morphine Allergy Rash Verified 12/16/19 19:12 Family History (Updated 03/16/21 @ 18:[address] Marko Guerrero MD) Other Heart disease Myocardial infarction Surgical History History of appendectomy Social History Smoking Status: Former smoker ROS Constitutional Constitutional: Denies chills, fatigue, fever(s) or malaise Eyes Eyes: Denies blurry vision ENT HEENT: Denies headache(s) or nasal discharge Cardiovascular Cardiovascular: Reports chest pain; Denies dyspnea on exertion or syncope Respiratory/Chest Respiratory/Chest: Denies cough, shortness of breath at rest or shortness of breath with exertion Gastrointestinal Gastrointestinal: Denies constipation, diarrhea, nausea or vomiting Genitourinary Genitourinary: Denies dysuria Neurologic Neurologic: Denies focal weakness, numbness or tremor(s) Psychiatric Psychiatric: Denies anxiety or depression Vital Signs Vital Signs Vital Signs: 03/16/21 16:10 03/16/21 16:11 03/16/21 16:44 Temperature 99.2 F H 99.2 F H Temperature Source Temporal Temporal Pulse Rate 74 65 Respiratory Rate 16 18 Blood Pressure 122/111 H 122/111 H Blood Pressure Mean 114 114 Pulse Ox 98 97 95 Oxygen Delivery Method Room Air Room Air Nasal Cannula Oxygen Flow Rate (L/min) 2 03/16/21 16:53 03/16/21 17:15 03/16/21 18:03 Temperature Temperature Source Pulse Rate 112 H 101 H 79 Respiratory Rate 16 16 15 Blood Pressure 144/84 H 130/83 H 135/91 H Blood Pressure Mean 104 98 105 Pulse Ox 98 97 97 Oxygen Delivery Method Nasal Cannula Nasal Cannula Nasal Cannula Oxygen Flow Rate (L/min) 2 2 Weight Weight: 283 lb 15.286 oz Body Mass Index (BMI) 40.7 Physical Exam Const alert, oriented x3 and no apparent distress General Appearance: cooperative HEENT normocephalic Mouth: dry mucous membranes Eyes PERRL, EOMs intact bilaterally and conjunctivae normal Neck supple and no JVD Resp normal respiratory effort, no retractions, no use of accessory muscles and clear to auscultation bilaterally Auscultation: Negative for crackles, rales, rhonchi or wheezes Cardio S1 normal heart sound, S2 normal heart sound and no murmurs Rate: tachycardic Rhythm: abnormal rhythm GI soft to palpation, non-tender and non-distended; Negative for hepatosplenomegaly Extremity no clubbing, cyanosis or edema Skin no rashes or lesions noted Neuro no focal motor deficits and no sensory deficits noted Psych affect normal Appearance: appropriate Results Lab / Micro Data Result Diagrams: 03/16/21 16:20 03/16/21 16:20 Labs: Laboratory Results - last 24 hr 03/16/21 16:20: WBC 7.9, RBC 5.14, Hgb 15.1, Hct 45.1, MCV 87.7, MCH 29.4, MCHC 33.5, RDW Std Deviation 40.3, RDW Coeff of Mele 12.5, Plt Count 242, MPV 10.6, Immature Gran % (Auto) 0.400, Neut % (Auto) 70.8 H, Lymph % (Auto) 20.7, [place] % (Auto) 6.2, Eos % (Auto) 1.5, Baso % (Auto) 0.4, Absolute Neuts (auto) 5.6, Absolute Lymphs (auto) 1.64, Nucleated RBC % 0 03/16/21 16:20: Sodium 139, Potassium 3.3 L, Chloride 107, Carbon Dioxide 24.0, Anion Gap 8, BUN 19 H, Creatinine 1.12, Estim Creat Clear Calc 69.70, Est GFR (MDRD) Af Amer 85, Est GFR (MDRD) Non-Af 70, BUN/Creatinine Ratio 17.0, Glucose 152 H, Calcium 8.5, Troponin I High Sens 7.4, TSH 1.68 Radiology Impression Chest X-Ray 03/16/21 16:40 IMPRESSION: No airspace consolidation or pleural effusion. No acute cardiopulmonary process. Electronically Signed: Gaston Frank MD (Bro[place]) at 16:50 EDT , Service support , Assessment & Plan Assessment/Plan (1) Chest pain: (2) Atrial flutter: PLAN: 1. Chest pain/new onset a flutter/HTN/HLD -Chest pain is likely related to going in and out of a flutter with RVR -We will obtain an echo in the morning and transition him to twice daily metoprolol -We will increase his lisinopril to 20 daily -We will trend troponins -[id number] is a 1 for blood pressure therefore will maintain him on aspirin -Continue with statin. 2. Parkinson's disease -Stable -Continue Sinemet 3. GERD -Stable -Continue with PPI DVT: Ambulation Charges/Coding Visit Charges OBSV E&M: 73892 Initial observation care L2
--- NOTE | 2021-03-16 18:56 | ECHOCS_ITS ---
Reason For Study: Afib, Aflutter Procedure This was a 2D Doppler, Color Flow transthoracic echocardiogram. Contrast injection was performed. Exam performed portable in patient room. Left Ventricle Normal LV size. Left ventricular systolic function is normal. The estimated ejection fraction is 60 %. No regional wall motion abnormalities noted. Right Ventricle Normal RV size. Normal systolic function. Atria The left atrium is mildly enlarged. Normal right atrium. Mitral Valve Normal mitral valve. Mild (1+) eccentric mitral valve insufficiency. Tricuspid Valve Normal tricuspid valve. Mild (1+) tricuspid valve insufficiency. Pulmonary artery systolic pressure is 40 mmHg. Aortic Valve Trisinus/trileaflet aortic valve. Pulmonic Valve Normal pulmonic valve. Great Vessels Normal aortic root. The pulmonary artery is normal size. Normal inferior vena cava. Pericardium/Pleural No pericardial effusion. Medication Diluted definity 2ml given slow IV push to enhance endocardial definition. MMode/2D Measurements & Calculations LVIDd: 5.5 cm IVSd: 1.1 cm Ao root diam: 3.0 cm LVIDs: 3.9 cm LVPWd: 0.97 cm RVDd: 4.1 cm FS: 29.5 % LAV(MOD-bp): 69.9 ml LA A4 area: 24.5 cm2 LA dimension(2D): 4.7 cm LAV(MOD-bp) Indexed: 28.8 ml/m2 LAV(MOD-sp2): 62.1 ml LAV(MOD-sp4): 74.7 ml RA A4 area: 17.8 cm2 Doppler Measurements & Calculations MV E max vickie: 96.3 cm/sec Ao V2 max: 153.1 cm/sec LV V1 max: 127.2 cm/sec Ao max P.5 mmHg LV V1 max P.5 mmHg Ao V2 mean: 110.6 cm/sec Ao mean P.4 mmHg Ao V2 VTI: 27.7 cm PA V2 max: 104.1 cm/sec TR max vickie: 297.1 cm/sec TR max P.3 mmHg ECHO/Echo Complete W/ Contrast Interpretation Summary Normal LV size. Left ventricular systolic function is normal. The estimated ejection fraction is 60 %. Pulmonary artery systolic pressure is 40 mmHg. Contrast injection was performed. Ordering Physician: Marko Guerrero Referring Physician: Mey Cornelius Performed By: Keesha Gillis, [place], RVT
--- NOTE | 2021-03-16 19:44 | EKG12_ITS ---
Test Reason : CP ADMISSION Blood Pressure : / mmHG Vent. Rate : 076 BPM Atrial Rate : 304 BPM P-R Int : 000 ms QRS Dur : 096 ms QT Int : 404 ms P-R-T Axes : 261 011 000 degrees QTc Int : 454 ms Atrial flutter T wave abnormality, consider inferior ischemia Abnormal ECG When compared with ECG of 16-MAR-2021 16:17, MANUAL COMPARISON REQUIRED, DATA IS UNCONFIRMED Confirmed by LUISANA CARLSON, MICHELLE ([id number]), proposal editor MARNIE JURADO ([id number]) on 03/18/2021 9:48:20 AM Referred By: Marko Guerrero Confirmed By:MICHELLE LIEBERMAN MD
[2021-03-16] MEDS: Atorvastatin Calcium 10 MG Tablet PO (21:38)
[2021-03-16] MEDS: oxyCODONE HCl Cr 10 MG Tablet 20 MG PO (21:38)
[2021-03-16] MEDS: Metoprolol Tartrate 25 MG Tablet PO (21:38)
[2021-03-16] MEDS: Carbidopa/Levodopa 25/100 Tablet PO (21:38)
[2021-03-17] VITALS (13 sets, daily range): BP systolic 117–147; BP diastolic 73–98; PULSE 68–89; RESP 14–16; TEMP 36.3–37.1; O2SAT 93–97
[2021-03-17 00:06] LABS: Troponin-I HS 9.5 pg/mL (3.0-78.5)
[2021-03-17] MEDS: Carbidopa/Levodopa 25/100 Tablet PO ×2 (05:06→13:56)
[2021-03-17 06:13] LABS: Absolute Lymphocyte Count 1.57 X10^3/uL (0.83-4.51); Absolute Neutrophil Count 3.5 X10^3/uL (2.0-7.7); Basophil# 0.02 X10^3/uL; Basophil% 0.3 % (0-1); Eosinophil# 0.13 X10^3/uL; Eosinophils% 2.2 % (0-5); Lymphocyte # 1.57 X10^3/ul (0.83-4.51); Lymphocyte % 27.2 % (19-41); Mean Corp Hgb Conc 33.3 g/dL (32-36); Mean Corpuscular Hgb 29.6 pg (27.0-32.0); Mean Corpuscular Volume 88.8 fL (80-94); Mean Platelet Vol. 10.4 fl (6.2-12.0); Monocyte# 0.57 X10^3/uL; Monocyte% 9.9 % (0-10); NRBC Flagged by Analyzer 0 % (0-5); Neutrophil # 3.46 X10^3/uL (2.7-7.7); Neutrophil % 59.9 % (47-70); Platelet Count 189 K/mm3 (150-450); RBC Distribution Width CV 12.6 % (11.6-14.6); RBC Distribution Width SD 41.1 fl (35.1-43.9); Red Blood Count 4.73 M/mm3 (4.6-6.2); White Blood Count 5.8 K/mm3 (4.4-11.0)
[2021-03-17 06:43] LABS: Anion Gap 6 (5-15); BUN 16 mg/dL (7-18); BUN/Creat Ratio 17.9 RATIO (10-20); Calcium,Total 7.9 mg/dL (8.5-10.1); Chloride 104 mmol/L (98-107); EST Glomerular Filtration Rate 91 mL/min (>60); Est Glom Filt Rate - Afr Amer 110 mL/min (>60); Estimated Creatinine Clearance 86.74 ml/min; Glucose 93 mg/dL (74-106); Potassium 3.5 mmol/L (3.5-5.1); Sodium Level 139 mmol/L (136-145)
[2021-03-17] MEDS: Aspirin 81 MG TAB.CHEW PO (08:27)
[2021-03-17] MEDS: Pantoprazole Sodium 40 MG Tablet PO (08:27)
[2021-03-17] MEDS: Lisinopril 20 MG Tablet PO (08:27)
[2021-03-17] MEDS: oxyCODONE HCl Cr 10 MG Tablet 20 MG PO (08:31)
--- NOTE | 2021-03-17 09:38 | CASEMGMT ---
According to the [facility] website, the following are in-network tertiary facilities: [facility], [facility], [facility], [facility], [facility], and . Rhoda HALEY CM
[2021-03-17] MEDS: Cholecalciferol (VIT D3) 25 MCG TABLET (1,000 UNITS) PO (10:21)
[2021-03-17] MEDS: Metoprolol Tartrate 25 MG Tablet PO (10:21)
--- NOTE | 2021-03-17 11:08 | NURSING ---
report given to luis fernandez Alvaro
[2021-03-17] MEDS: 0.9% Normal Saline 1,000 ML 75 ML IV (12:20)
--- NOTE | 2021-03-17 12:25 | CL.D_ITS ---
Patient Name: LUCILLE GARCIA Study Date: 03/17/2021 Performing: Clinton Martini MD Ht: 70.07 inches 178 cm : 1955 Wt: 284.4 lbs 129 kg Age: 65 Gender: male BSA: 2.43 PROCEDURE(S) PERFORMED HD97-WGL/COR/LV CLINICAL PROFILE AND INDICATIONS Indications: Cardiac Arrythmia Heart Failure: None Stress/Imaging Stress/Image Study Performed: No CAD Presentations: Symptom unlikely to be ischemic. CONCLUSIONS Non obstructive coronary arteries RECOMMENDATIONS Medical therapy DESCRIPTION OF PROCEDURE The patient arrived to the procedure lab. The risks and benefits of the procedure as well as a full d escription of our services here and current unavailability of surgical backup were fully explained to the patient and/or their significant other prior to the catheterization. The Timeout was completed, verifying the correct patient and procedure. The patient's procedural site was prepped and draped in the usual fashion. Local anesthetic was given subcutaneously to right radial region with Lidocaine 2% . Using a modified Seldinger technique, arterial access was obtained via the right radial artery, a 6 Fr sheath was inserted. Left Coronary Artery selective angiography was performed in multiple views u sing a 5 Fr. 4.0 [place] catheter. Right Coronary Artery selective angiography was then performed in mu ltiple views using a 5 Fr. 4.0 [place] catheter. Left Ventriculography was performed in ESCALANTE projection using a 5 Fr. Pigtail catheter. LV to AO pullback pressures were then recorded.The arterial sheath was pulled and a TR Band was applied for hemostasis CORONARY ANGIOGRAPHY DOMINANCE: Right Dominant LEFT HEART ASSESSMENT Left Ventricular Ejection Fraction: by LV Gram 60 % Normal LV wall motion Normal Left Ventricular systolic function LEFT MAIN: Angiographically normal LEFT ANTERIOR DESCENDING ARTERY: Mild luminal irregularities CIRCUMFLEX ARTERY: Mild luminal irregularities RIGHT CORONARY ARTERY: Mild luminal irregularities COMPLICATIONS No Complications PROCEDURE MEDICATIONS Versed 1 mg IV Versed 1 mg IV Oxygen: 2 L/min via nasal cannula Benadryl 25 mg IV @ 03/17/2021 11:51:39 Heparin given IA 03/17/2021 12:07:26 Solu-cortef 100 mg IV 03/17/2021 11:51:30 SUMMARY OF HEMODYNAMIC DATA Time AIR REST ECG 11:49:17 Art 172/100 (127) 12:04:29 AO 172/99 (127) SA 12:06:16 AO 130/95 (112) 12:08:21 LV 110/9, 15 12:13:40 LV 108/12, 19 12:13:47 LV 114/13, 25 12:14:51 LV 116/15, 20 12:14:58 LVp 118/19, 20 12:15:08 AOp 118/84 (100) 12:15:14 Signed By Clinton Martini MD On 03/17/2021 12:23:54 PM Clinton Martini MD
[2021-03-17 13:11] LABS: D-Dimer Quantitative (DVT/PE) 0.41 FEU/ug/m (0.27-0.49)
--- NOTE | 2021-03-17 15:09 | PCM.CONS.C ---
Assessment & Plan Assessment/Plan (1) Chest pain: PLAN: Patient presents with chest discomfort which is atypical. Due to the continuous nature of the discomfort despite heart rate improvement it was felt that he should undergo a cardiac catheterization to assess his anatomy. He underwent the above and it was demonstrated that he had normal coronary arteries. He would therefore be investigated for other etiologies. (2) Atrial flutter: PLAN: He does have a history of atrial flutter. His ventricular response rate is better controlled now. I would recommend that we increase his metoprolol to 50 mg twice a day and start him on anticoagulation with her plan to cardiovert him in a month if he has not spontaneously cardioverted. (3) HTN (hypertension): PLAN: He will continue on the lisinopril as prescribed. Thank you for allowing me to participate in the care of your patient. Please don't hesitate to call if any issues arise. HPI Consult Data Date of Consult: 03/17/21 HPI Narrative HPI Narrative: LUCILLE GARCIA, is a 65 M who presents with chest discomfort which he describes as a heaviness as well as left leg discomfort. He says this has been going on for a few weeks. He presented to the emergency room was noted to be in atrial flutter with a rapid ventricular response rate he was given IV diltiazem to slow down his heart rate. His cardiac enzymes were negative. He however continued to complain of chest discomfort. Cardiology was called for further evaluation and management. He described denies any dizziness diaphoresis near syncope or syncope. [facility] Medical History (Updated 03/17/21 @ 15:[address] Clinton Martini MD) Gonzalez esophagus Chronic pain Diabetes HTN (hypertension) Neck pain with history of cervical spinal surgery Parkinson disease Rheumatoid arthritis Skin cancer Home Medications atenolol-chlorthalidone 0.5 tab PO DAILY 10/14/17 [History Last Taken 03/16/21] carbidopa-levodopa 25 - 100 tab PO TID 10/14/17 [History Last Taken 03/16/21] esomeprazole magnesium [Nexium] 40 mg PO DAILY 10/14/17 [History Last Taken 03/16/21] lisinopril [Zestril] 10 mg PO DAILY 10/14/17 [History Last Taken 03/16/21] simvastatin 20 mg PO QHS 10/14/17 [History Last Taken 03/15/21] ascorbic acid (vitamin C) [Vitamin C] 1 g PO BID 03/16/21 [History Last Taken 03/16/21] aspirin 81 mg PO DAILY 03/16/21 [History Last Taken Unknown] cholecalciferol (vitamin D3) [Vitamin D3] 25 mcg PO DAILY 03/16/21 [History Last Taken 03/16/21] multivitamin 1 tab PO DAILY 03/16/21 [History Last Taken 03/15/21] omega-3 fatty acids-vitamin E [Fish Oil] 1 cap PO DAILY 03/16/21 [History Last Taken 03/15/21] oxycodone myristate [Xtampza ER] 18 - 36 mg PO BID 03/16/21 [History Last Taken 03/16/21] Allergy/AdvReac Type Severity Reaction Status Date / Time fentanyl Allergy Rash Verified 12/16/19 19:12 Iodinated Contrast Media Allergy Rash Verified 12/16/19 19:12 [CONTRASTS] morphine Allergy Rash Verified 12/16/19 19:12 Family History Other Heart disease Myocardial infarction Surgical History History of appendectomy Social History Smoking Status: Former smoker ROS Constitutional Constitutional: Denies fever(s) or weight loss Eyes Eyes: Reports systems reviewed and no addt'l complaints, except as documented ENT HEENT: Reports systems reviewed and no addt'l complaints, except as documented Cardiovascular Cardiovascular: Reports other Respiratory/Chest Respiratory/Chest: Reports other Gastrointestinal Gastrointestinal: Denies change in bowel habits, nausea, vomiting or weight changes Genitourinary Genitourinary: Denies difficulty urinating Musculoskeletal Musculoskeletal: Denies joint stiffness or muscle weakness Integumentary Integumentary: Denies lesions Neurologic Neurologic: Denies dizziness or syncope Psychiatric Psychiatric: Denies anxiety Endocrine Endocrinology: Denies excessive sweating or fatigue Hematologic/Lymphatic Hematologic/Lymphatic: Denies anemia Allergic/Immunologic Allergic/Immunologic: Denies seasonal rhinorrhea Physical Exam Const oriented x3 and healthy appearing Orientation / Consciousness: awake HEENT normocephalic Eyes PERRL and conjunctivae normal Neck supple, no JVD and no carotid bruits Chest inspection of chest normal Resp normal respiratory effort and clear to auscultation bilaterally Cardio Palpation: normal PMI Rate: regular rate Rhythm: regular rhythm Heart Sounds: S1 normal and S2 normal Peripheral Pulses: pulses 2+ throughout GI normal to inspection, nondistended, normoactive bowel sounds Extremity normal to inspection and no clubbing, cyanosis or edema Psych mental status grossly normal Objective Data Vital Signs: Vital Signs Temp Pulse Resp BP Pulse Ox 98 F 82 14 147/83 H 95 03/17/21 14:32 03/17/21 14:48 03/17/21 14:48 03/17/21 14:48 03/17/21 14:48 Oxygen Flow Rate (L/min) 2 Oxygen Delivery Method Room Air Weight: 284 lb 11.209 oz Body Mass Index (BMI) 40.8 Intake & Output: Intake and Output for Last 24 Hours 03/15/21 03/16/21 03/17/21 23:59 23:59 23:59 Intake Total 1000 / 1250 950 / 950 Balance 1000 / 1250 950 / 950 Lab / Micro Data Result Diagrams: 03/17/21 05:45 03/17/21 05:45 Labs: Laboratory Results - last 24 hr 03/16/21 16:20: WBC 7.9, RBC 5.14, Hgb 15.1, Hct 45.1, MCV 87.7, MCH 29.4, MCHC 33.5, RDW Std Deviation 40.3, RDW Coeff of Mele 12.5, Plt Count 242, MPV 10.6, Immature Gran % (Auto) 0.400, Neut % (Auto) 70.8 H, Lymph % (Auto) 20.7, [place] % (Auto) 6.2, Eos % (Auto) 1.5, Baso % (Auto) 0.4, Absolute Neuts (auto) 5.6, Absolute Lymphs (auto) 1.64, Nucleated RBC % 0 03/16/21 16:20: Sodium 139, Potassium 3.3 L, Chloride 107, Carbon Dioxide 24.0, Anion Gap 8, BUN 19 H, Creatinine 1.12, Estim Creat Clear Calc 69.70, Est GFR (MDRD) Af Amer 85, Est GFR (MDRD) Non-Af 70, BUN/Creatinine Ratio 17.0, Glucose 152 H, Calcium 8.5, Troponin I High Sens 7.4, TSH 1.68 03/16/21 19:32: Troponin I High Sens 10.0 03/16/21 23:33: Troponin I High Sens 9.5 03/17/21 05:45: WBC 5.8, RBC 4.73, Hgb 14.0, Hct 42.0, MCV 88.8, MCH 29.6, MCHC 33.3, RDW Std Deviation 41.1, RDW Coeff of Mele 12.6, Plt Count 189, MPV 10.4, Immature Gran % (Auto) 0.500, Neut % (Auto) 59.9, Lymph % (Auto) 27.2, [place] % (Auto) 9.9, Eos % (Auto) 2.2, Baso % (Auto) 0.3, Absolute Neuts (auto) 3.5, Absolute Lymphs (auto) 1.57, Nucleated RBC % 0 03/17/21 05:45: Sodium 139, Potassium 3.5, Chloride 104, Carbon Dioxide 29.0, Anion Gap 6, BUN 16, Creatinine 0.90, Estim Creat Clear Calc 86.74, Est GFR (MDRD) Af Amer 110, Est GFR (MDRD) Non-Af 91, BUN/Creatinine Ratio 17.9, Glucose 93, Calcium 7.9 L 03/17/21 12:52: D-Dimer Quant (PE/DVT) 0.41 Cardiology Labs/Tests 03/16/21 16:20: WBC 7.9, RBC 5.14, Hgb 15.1, Hct 45.1, MCV 87.7, MCH 29.4, MCHC 33.5, Plt Count 242, MPV 10.6, Immature Gran % (Auto) 0.400, Neut % (Auto) 70.8 H, Lymph % (Auto) 20.7, [place] % (Auto) 6.2, Eos % (Auto) 1.5, Baso % (Auto) 0.4, Absolute Neuts (auto) 5.6, Nucleated RBC % 0 03/16/21 16:20: Sodium 139, Potassium 3.3 L, Chloride 107, Carbon Dioxide 24.0, Anion Gap 8, BUN 19 H, Creatinine 1.12, Est GFR (MDRD) Af Amer 85, Est GFR (MDRD) Non-Af 70, BUN/Creatinine Ratio 17.0, Glucose 152 H, Calcium 8.5 03/17/21 05:45: WBC 5.8, RBC 4.73, Hgb 14.0, Hct 42.0, MCV 88.8, MCH 29.6, MCHC 33.3, Plt Count 189, MPV 10.4, Immature Gran % (Auto) 0.500, Neut % (Auto) 59.9, Lymph % (Auto) 27.2, [place] % (Auto) 9.9, Eos % (Auto) 2.2, Baso % (Auto) 0.3, Absolute Neuts (auto) 3.5, Nucleated RBC % 0 03/17/21 05:45: Sodium 139, Potassium 3.5, Chloride 104, Carbon Dioxide 29.0, Anion Gap 6, BUN 16, Creatinine 0.90, Est GFR (MDRD) Af Amer 110, Est GFR (MDRD) Non-Af 91, BUN/Creatinine Ratio 17.9, Glucose 93, Calcium 7.9 L 03/17/21 12:52: D-Dimer Quant (PE/DVT) 0.41 Rhythm: EKG: ECHO: Stress Test: Cardiac Cath: PCI: CT Surgery: Holter monitor: EPS: PPM: CXR: Chest CT Scan: Radiography Diagnostic Testing: Radiology Impression Chest X-Ray 03/16/21 16:40 IMPRESSION: No airspace consolidation or pleural effusion. No acute cardiopulmonary process. Electronically Signed: Gaston Frank MD ([place]) at 16:50 EDT , Service support ,
--- NOTE | 2021-03-17 15:18 | PCM.DC ---
Discharge Instructions Diet Discharge Diet: Low fat / Low cholesterol Activity Discharge Activity: Return to Normal Activity Dressing / Incision Call your doctor if you observe: Fever of 101 or Higher, Shortness of breath, Dizziness, Swelling in the ankles, Chest pain and Increased palpitations (irregular heartbeat) Follow Up Care Test Results: Test results from this visit will be discussed in further detail at your follow-up appointment, if applicable. Discharge Plan Admission Admit Date/Time: 03/16/21 18:08 Attending Provider: Marko Guerrero Primary Care Provider: Mey Cornelius Consulting Providers: Clinton Martini Instructions Additional Instructions / Restrictions: Follow-up with your PCP in in 3 to 5 days to obtain lab work to monitor your renal function since we increased your lisinopril from 10 mg daily to 20 mg daily. Discharge Orders/Prescriptions Prescriptions: New metoprolol tartrate 50 mg Tablet 50 mg PO BID Qty: 60 RF: 0 Eliquis 5 mg tablet 5 mg PO BID Qty: 60 RF: 0 Continued simvastatin 20 MG tablet 20 mg PO QHS RF: 0 esomeprazole magnesium [Nexium] 40 MG capsule 40 mg PO DAILY RF: 0 carbidopa-levodopa 1 TABLET tablet 25 - 100 tab PO TID RF: 0 ascorbic acid (vitamin C) [Vitamin C] 1,000 mg Tablet 1 g PO BID RF: 0 aspirin 81 mg Tablet 81 mg PO DAILY RF: 0 omega-3 fatty acids-vitamin E 1,000 mg Capsule 1 cap PO DAILY RF: 0 cholecalciferol (vitamin D3) [Vitamin D3] 25 mcg (1,000 unit) Tablet,Chewable 25 mcg PO DAILY RF: 0 Xtampza ER 18 mg cap,sprinkl,ER12hr(DONT CRUSH) 18 - 36 mg PO BID RF: 0 multivitamin Tablet 1 tab PO DAILY RF: 0 Changed lisinopril [Zestril] 10 MG tablet 20 mg PO DAILY Qty: 0 RF: 0 Discontinued atenolol-chlorthalidone 1 EACH tablet 0.5 tab PO DAILY RF: 0 Referrals / Follow Up: Clinton Martini MD [STAFF PHYSICIAN] - Mey Cornelius MD [Primary Care Provider] - In 1 Week Disposition Disposition (needs filled in before D/C Order can be placed): Home, Self Care
--- NOTE | 2021-03-17 15:24 | DS.PCM_ITS ---
Providers Date of Admission: 03/16/21 Primary Care Physician: Dr. Mey Cornelius MD Consultations 03/17/21 09:11 Consult: Cardiology Routine Consulting Provider: Clinton Martini Reason for Consult: For cardiac cath EMERGENT Consult: No MD Notified: Yes Date Notified: 03/17/21 Time Notified: 09:11 Method of Notification: Verbal Reason For Visit: A FLUTTER WITH CP Diagnosis Discharge Diagnosis (1) Chest pain: Status: Acute Code(s): R07.9 - Chest pain, unspecified (2) Atrial flutter: Status: Acute Code(s): I48.92 - Unspecified atrial flutter (3) HTN (hypertension): Status: Chronic Code(s): I10 - Essential (primary) hypertension Medications at Discharge Home Medications carbidopa-levodopa 25 - 100 tab PO TID 10/14/17 esomeprazole magnesium [Nexium] 40 mg PO DAILY 10/14/17 simvastatin 20 mg PO QHS 10/14/17 Xtampza ER 18 - 36 mg PO BID 03/16/21 ascorbic acid (vitamin C) [Vitamin C] 1 g PO BID 03/16/21 aspirin 81 mg PO DAILY 03/16/21 cholecalciferol (vitamin D3) [Vitamin D3] 25 mcg PO DAILY 03/16/21 multivitamin 1 tab PO DAILY 03/16/21 omega-3 fatty acids-vitamin E 1 cap PO DAILY 03/16/21 apixaban [Eliquis] 5 mg PO BID #60 tab 03/17/21 lisinopril [Zestril] 20 mg PO DAILY #0 tab 03/17/21 metoprolol tartrate 50 mg PO BID #60 tab 03/17/21 Hospital Course Operations None Procedures Cardiac catheterization Summary of Care Provided Minutes Spent on Discharge: 40 Hospital Course: Per HPI: LUCILLE GARCIA, is a 65 M who presents to the hospital with intermittent chest pain over the last 3 weeks. He does not have a good story as to when it starts or why it gets better but it comes and goes periodically no significant shortness of breath or lightheadedness. He describes it as a deep pain to the left side of his chest but that it does not radiate anywhere. He does have intense family history of heart disease mother is a for signs of her high chest pain. In the ER he had an EKG which demonstrat ed a flutter and he was in a heart rate of about 115 which he denies feeling any palpitations per report. Initial troponin was unremarkable. Hospital Course: 1. Chest pain with new onset a flutter/HTN/MRM-03-prcp-old male presents to the hospital with chest pain has been going on for about 3 to 4 weeks intermittently. It was likely related to him going in and out of a flutter. He continued to have chest pain despite having an abnormal troponin therefore he was taken for cardiac cath today to rule out any coronary artery disease. His coronary arteries were normal. Recommendation per cardiology was to increase his metoprolol to 50 twice daily and to continue with the increase in lisinopril to 20 mg daily. Also they would like him to be on anticoagulation for about a month so they can evaluate him for cardioversion if he has not reverted to sinus rhythm in that time. I discussed with him the plan for discharge today and he expressed understanding of the risk benefits of going home and would like to go home today. 2. Parkinson's disease and GERD are all chronic medical conditions which complicate his care. His home medications were continued were appropriate Physical Exam Const alert, oriented x3 and no apparent distress General Appearance: cooperative HEENT normocephalic Eyes PERRL, EOMs intact bilaterally and conjunctivae normal Neck supple and no JVD Resp normal respiratory effort, no retractions, no use of accessory muscles and clear to auscultation bilaterally Auscultation: Negative for crackles, rales, rhonchi or wheezes Cardio S1 normal heart sound, S2 normal heart sound and no murmurs Rate: tachycardic Rhythm: abnormal rhythm GI soft to palpation, non-tender and non-distended; Negative for hepatosplenomegaly Extremity no clubbing, cyanosis or edema Skin no rashes or lesions noted Neuro no focal motor deficits and no sensory deficits noted Psych affect normal Appearance: appropriate Medical Records Data Medical Nutrition Assessment Dietitian: Nutrition Therapy Diagnosis Start: 03/17/21 15:10 Freq: Status: Active Protocol: Document 03/17/21 15:10 [facility] (Rec: 03/17/21 15:10 [facility] [id number]) Nutrition Malnutrition Evidence of Malnutrition Exists No Intake Problem Decreased Nutrient Needs (specify) Etiology (sodium) r/t cardiovascular dysfunction Signs/Symptoms as evidenced by h/o hypertension and atrial flutter. Status Active Problem Recommendation Dietitian Recommendations/Changes Change diet to cardiac consistent carbohydrate. Weight / BMI Weight Weight: 284 lb 11.209 oz Body Mass Index (BMI) 40.8 ABG / Lab / Microbiology Data Result Diagrams: 03/17/21 05:45 03/17/21 05:45 Laboratory: Laboratory Results - last 24 hr 03/16/21 16:20: WBC 7.9, RBC 5.14, Hgb 15.1, Hct 45.1, MCV 87.7, MCH 29.4, MCHC 33.5, RDW Std Deviation 40.3, RDW Coeff of Mele 12.5, Plt Count 242, MPV 10.6, Immature Gran % (Auto) 0.400, Neut % (Auto) 70.8 H, Lymph % (Auto) 20.7, [place] % (Auto) 6.2, Eos % (Auto) 1.5, Baso % (Auto) 0.4, Absolute Neuts (auto) 5.6, Absolute Lymphs (auto) 1.64, Nucleated RBC % 0 03/16/21 16:20: Sodium 139, Potassium 3.3 L, Chloride 107, Carbon Dioxide 24.0, Anion Gap 8, BUN 19 H, Creatinine 1.12, Estim Creat Clear Calc 69.70, Est GFR (MDRD) Af Amer 85, Est GFR (MDRD) Non-Af 70, BUN/Creatinine Ratio 17.0, Glucose 152 H, Calcium 8.5, Troponin I High Sens 7.4, TSH 1.68 03/16/21 19:32: Troponin I High Sens 10.0 03/16/21 23:33: Troponin I High Sens 9.5 03/17/21 05:45: WBC 5.8, RBC 4.73, Hgb 14.0, Hct 42.0, MCV 88.8, MCH 29.6, MCHC 33.3, RDW Std Deviation 41.1, RDW Coeff of Mele 12.6, Plt Count 189, MPV 10.4, Immature Gran % (Auto) 0.500, Neut % (Auto) 59.9, Lymph % (Auto) 27.2, [place] % (Auto) 9.9, Eos % (Auto) 2.2, Baso % (Auto) 0.3, Absolute Neuts (auto) 3.5, Absolute Lymphs (auto) 1.57, Nucleated RBC % 0 03/17/21 05:45: Sodium 139, Potassium 3.5, Chloride 104, Carbon Dioxide 29.0, Anion Gap 6, BUN 16, Creatinine 0.90, Estim Creat Clear Calc 86.74, Est GFR (MDRD) Af Amer 110, Est GFR (MDRD) Non-Af 91, BUN/Creatinine Ratio 17.9, Glucose 93, Calcium 7.9 L 03/17/21 12:52: D-Dimer Quant (PE/DVT) 0.41 Radiography Diagnostic Testing: Radiology Impression Chest X-Ray 03/16/21 16:40 IMPRESSION: No airspace consolidation or pleural effusion. No acute cardiopulmonary process. Electronically Signed: Gaston Frank MD (Brooks) at 16:50 EDT , Service support , D/C Instructions Discharge Diet: Low fat / Low cholesterol Call your doctor if you observe: Fever of 101 or Higher, Shortness of breath, Dizziness, Swelling in the ankles, Chest pain and Increased palpitations (irregular heartbeat) Meaningful Use Info Meaningful Use Diagnoses (Choose all that apply): None applicable Discharge Plan Admission Admit Date/Time: 03/16/21 18:08 Attending Provider: Marko Guerrero Primary Care Provider: Mey Cornelius Consulting Providers: Clinton Martini Instructions Additional Instructions / Restrictions: Follow-up with your PCP in in 3 to 5 days to obtain lab work to monitor your renal function since we increased your lisinopril from 10 mg daily to 20 mg daily. Discharge Orders/Prescriptions Prescriptions: New metoprolol tartrate 50 mg Tablet 50 mg PO BID Qty: 60 RF: 0 Eliquis 5 mg tablet 5 mg PO BID Qty: 60 RF: 0 Continued simvastatin 20 MG tablet 20 mg PO QHS RF: 0 esomeprazole magnesium [Nexium] 40 MG capsule 40 mg PO DAILY RF: 0 carbidopa-levodopa 1 TABLET tablet 25 - 100 tab PO TID RF: 0 ascorbic acid (vitamin C) [Vitamin C] 1,000 mg Tablet 1 g PO BID RF: 0 aspirin 81 mg Tablet 81 mg PO DAILY RF: 0 omega-3 fatty acids-vitamin E 1,000 mg Capsule 1 cap PO DAILY RF: 0 cholecalciferol (vitamin D3) [Vitamin D3] 25 mcg (1,000 unit) Tablet,Chewable 25 mcg PO DAILY RF: 0 Xtampza ER 18 mg cap,sprinkl,ER12hr(DONT CRUSH) 18 - 36 mg PO BID RF: 0 multivitamin Tablet 1 tab PO DAILY RF: 0 Changed lisinopril [Zestril] 10 MG tablet 20 mg PO DAILY Qty: 0 RF: 0 Discontinued atenolol-chlorthalidone 1 EACH tablet 0.5 tab PO DAILY RF: 0 Referrals / Follow Up: Clinton Martini MD [STAFF PHYSICIAN] - Mey Cornelius MD [Primary Care Provider] - In 1 Week Disposition Disposition (needs filled in before D/C Order can be placed): Home, Self Care Charges/Coding Visit Charges OBSV E&M: 93904 Observation care discharge
--- NOTE | 2021-03-17 15:57 | CASEMGMT ---
Pt to be sent home on Eliquis and med e-scribed to [facility] retail pharmacy. Call to Ashwini and she states Eliquis card applied. Rhoda HALEY CM
== END 2021-03-17 15:22 | disposition home or self-care (01) ==
LOC: ED 17:59 → PCU 03-17 08:43
PROVIDERS: Internal Medicine Cardiovascular Disease; Admitting Provider Family Medicine; Emergency Provider Emergency Medicine; PCP Internal Medicine; Referring Provider Family Medicine; Visit Provider Family Medicine
DX: R07.89 Other chest pain (principal); I48.92 Unspecified atrial flutter; I10 Essential (primary) hypertension; G20 Parkinson's disease; E11.9 Type 2 diabetes mellitus without complications; K21.9 Gastro-esophageal reflux disease without esophagitis; M06.9 Rheumatoid arthritis, unspecified; G89.29 Other chronic pain; Z79.899 Other long term (current) drug therapy; Z79.01 Long term (current) use of anticoagulants; Z79.82 Long term (current) use of aspirin; Z87.891 Personal history of nicotine dependence; Z86.16 Personal history of COVID-19; R94.31 Abnormal electrocardiogram [ECG] [EKG]
CPT/HCPCS: 36415; 71045; 80048; 84443; 84484; 85025; 85379; 93005; 93306; 93458; 96361; 96374; 96375; 97802; 99152; 99153; 99218; 99285; J7030; J7040; Q9957; A4216; C1769; C1894; C8929; G0378; J3490; Q9967

== ENCOUNTER → 2021-03-27 11:50 | Outpatient (CLI) | payer MEDICARE, SELFPAY ==
[2021-03-27 10:47] VITALS: BMI 40.8
[2021-03-27 12:50] LABS: Absolute Lymphocyte Count 1.93 X10^3/uL (0.83-4.51); Absolute Neutrophil Count 7.4 X10^3/uL (2.0-7.7); Basophil# 0.06 X10^3/uL; Basophil% 0.6 % (0-1); Eosinophil# 0.08 X10^3/uL; Eosinophils% 0.7 % (0-5); Hematocrit 47.8 % (40-54); Hemoglobin 15.9 g/dL (13.0-16.5); Lymphocyte # 1.93 X10^3/ul (0.83-4.51); Lymphocyte % 17.9 % (19-41); Mean Corp Hgb Conc 33.3 g/dL (32-36); Mean Corpuscular Hgb 29.7 pg (27.0-32.0); Mean Corpuscular Volume 89.3 fL (80-94); Mean Platelet Vol. 10.3 fl (6.2-12.0); Monocyte# 0.96 X10^3/uL; Monocyte% 8.9 % (0-10); NRBC Flagged by Analyzer 0 % (0-5); Neutrophil # 7.44 X10^3/uL (2.7-7.7); Neutrophil % 69.1 % (47-70); Platelet Count 274 K/mm3 (150-450); RBC Distribution Width CV 13.1 % (11.6-14.6); RBC Distribution Width SD 42.5 fl (35.1-43.9); Red Blood Count 5.35 M/mm3 (4.6-6.2); White Blood Count 10.8 K/mm3 (4.4-11.0)
[2021-03-27 13:11] LABS: Anion Gap 8 (5-15); BNP,B-Type NATRIURETIC PEPTIDE 175.7 pg/mL (0-100); BUN 22 mg/dL (7-18); BUN/Creat Ratio 17.3 RATIO (10-20); Chloride 106 mmol/L (98-107); Creatinine, Serum 1.27 mg/dL (0.70-1.30); EST Glomerular Filtration Rate 61 mL/min (>60); Est Glom Filt Rate - Afr Amer 74 mL/min (>60); Glucose 93 mg/dL (74-106); Potassium 4.2 mmol/L (3.5-5.1); Sodium Level 142 mmol/L (136-145)
== END ==
PROVIDERS: PCP Internal Medicine; Referring Provider Nurse Practitioner Family; Visit Provider Nurse Practitioner Family
DX: G47.33 Obstructive sleep apnea (adult) (pediatric) (principal); I10 Essential (primary) hypertension; I48.91 Unspecified atrial fibrillation; R06.00 Dyspnea, unspecified
CPT/HCPCS: 36415; 80048; 83880; 85025

== ENCOUNTER 2021-04-21 10:52 | Day surgery (SDC) | payer MEDICARE, SELFPAY ==
[2021-03-31 08:00] VITALS: BMI 40.3
[2021-04-18 09:13] VITALS: BMI 40.7
--- NOTE | 2021-04-21 12:29 | PCM.OP.BLANK ---
Problems Associated Problem List Diagnoses (1) Atrial fibrillation: Operative Report Date of Procedure: 04/21/21 DC cardioversion. Persistent atrial fibrillation. The patient was seen by Dr. Hurt of the critical care division. He has been on anticoagulation consistently. After informed consent was obtained anterior posterior pads were applied. The patient was then administered 60 mg of intravenous propofol. 300 J of DC cardioversion energy biphasic were applied with prompt reversal to sinus rhythm. There is however lasted less than 15 seconds. The patient was then noted to be in atrial fibrillation again and then was administered 50 mg of intravenous propofol once again. 300 J of DC cardioversion energy were applied with prompt reversal to sinus rhythm. Once again this lasted less than 15 seconds. Conclusion: Unsuccessful DC cardioversion from atrial fibrillation to sinus rhythm. Would consider anticoagulation with amiodarone 200 mg twice daily for 2 weeks and then 200 mg a day for 2 weeks and then repeat cardioversion in 4 weeks
--- NOTE | 2021-04-21 12:59 | PRO.PCM_ITS ---
Assessment & Plan Assessment/Plan (1) Atrial fibrillation: QUALIFIERS: Atrial fibrillation type: unspecified chronic Qualified Code(s): I48.20 - Chronic atrial fibrillation, unspecified (2) MADIHA (obstructive sleep apnea): (3) BMI greater than 40: Procedure Report Date of Procedure: 04/21/21 CONSCIOUS SEDATION REPORT BRIEF HISTORY OF PRESENT ILLNESS: The patient is a 65-year-old male who presented to [facility] for an elective outpatient cardioversion due to underlying atrial fibrillation. The patient reports no PO intake since midnight, but is currently therapeutic on anticoagulation. The patient does have a history of probable sleep apnea and reports he has a sleep study later on [facility]. The patient reports a history of smoking, but denies COPD. The patient denies any recent constitutional symptoms such as fevers, chills, nausea or vomiting. The patient denies previous applicable anesthetic complications. Patient's last known ejection fraction was 60% and patient did take Eliquis on the day of the procedure. PHYSICAL EXAMINATION: VITAL SIGNS: Reviewed and were acceptable. GENERAL: The patient is a male, in no apparent distress, speaking in full sentences. HEENT: Normocephalic, atraumatic. Mucous membranes are moist and pink. Good mouth opening noted. Trachea is midline. Good neck mobility. MP III CHEST: S1, S2 irregularly irregular. No murmurs, rubs or gallops were noted. LUNGS: Clear to auscultation bilaterally without appreciable wheezes, rales or rhonchi. ABDOMEN: Soft, nontender, nondistended. Positive bowel sounds. EXTREMITIES: There is no clubbing, cyanosis or edema. ASA Class: II DESCRIPTION OF PROCEDURE: After confirmation of informed consent, the patient's anesthesia plan was reviewed in detail. Propofol was chosen. Risks and benefits were reviewed and the patient agreed to proceed. At 12:15 PM, the patient was given 40 mg of propofol. The patient required a total of 110 mg of propofol throughout the procedure to achieve appropriate sedation. The patient achieved an appropriate level of sedation and received 2 attempt s synchronized cardioversion, at at [address] Martini at the bedside. This was initially successful in achieving normal sinus rhythm, but decompensated back into A. fib within a minute. The patient was monitored until 12:30 PM, at which time the patient reached their baseline mental status and function. The patient tolerated the procedure well. COMPLICATIONS: Remained in A. fib. Amiodarone added by cardiology. ESTIMATED BLOOD LOSS: None RECOMMENDATIONS: Okay to recover in usual fashion. Procedures Pulmonary 9xxxx: [id number] Con Sedation
== END 2021-04-21 13:30 | disposition home or self-care (01) ==
LOC: CLSP 10:53
PROVIDERS: PCP Internal Medicine; Referring Provider Internal Medicine Cardiovascular Disease; Visit Provider Internal Medicine Cardiovascular Disease
DX: I48.20 Chronic atrial fibrillation, unspecified (principal); I48.92 Unspecified atrial flutter; I10 Essential (primary) hypertension; E11.9 Type 2 diabetes mellitus without complications; G20 Parkinson's disease; G47.33 Obstructive sleep apnea (adult) (pediatric); M06.9 Rheumatoid arthritis, unspecified; Z79.02 Long term (current) use of antithrombotics/antiplatelets; Z79.899 Other long term (current) drug therapy; Z87.891 Personal history of nicotine dependence
CPT/HCPCS: 92960; 93005; J7040

== ENCOUNTER → 2021-04-21 20:00 | Outpatient (CLI) | payer MEDICARE, SELFPAY | PROVIDERS: PCP Internal Medicine; Referring Provider Nurse Practitioner Acute Care; Visit Provider Nurse Practitioner Acute Care | DX: G47.33 Obstructive sleep apnea (adult) (pediatric) (principal); I48.20 Chronic atrial fibrillation, unspecified; I48.92 Unspecified atrial flutter; I10 Essential (primary) hypertension; E11.9 Type 2 diabetes mellitus without complications; G20 Parkinson's disease; M06.9 Rheumatoid arthritis, unspecified; Z79.02 Long term (current) use of antithrombotics/antiplatelets; Z79.899 Other long term (current) drug therapy; Z87.891 Personal history of nicotine dependence | CPT/HCPCS: 92960; 93005; 95811; J7040 ==

== ENCOUNTER 2021-05-25 11:08 | Emergency (ER) | payer MEDICARE, SELFPAY ==
[2021-05-25] VITALS (7 sets, daily range): BP systolic 124–142; BP diastolic 69–101; PULSE 68–98; RESP 16–19; TEMP 36.1–36.6; O2SAT 95–98; BMI 42.2
--- NOTE | 2021-05-25 11:43 | EKG12_ITS ---
Test Reason : SOB Blood Pressure : / mmHG Vent. Rate : 064 BPM Atrial Rate : 064 BPM P-R Int : 150 ms QRS Dur : 096 ms QT Int : 448 ms P-R-T Axes : 062 024 008 degrees QTc Int : 462 ms Normal sinus rhythm Normal ECG Confirmed by LUISANA CARLSON, MICHELLE ([id number]), offline editor MARNIE JURADO ([id number]) on 05/27/2021 8:08:46 AM Referred By: RAYNA Confirmed By:MICHELLE LIEBERMAN MD
--- NOTE | 2021-05-25 11:45 | EX.ED.DYSGE1 ---
HPI History of Present Illness Chief Complaint: Shortness of Breath Informant: patient Onset/Context/Timing Onset: Days Context: Gradual Onset Current Severity: Mild Maximum Severity: Moderate Narrative Narrative: Patient presents secondary to right lower extremity edema and increased shortness of breath. He states his right lower leg has been swelling for the last week and he noted some bruising along his toes. He denies any injury but states he is up on his feet a lot. He denies history of blood clots and is on Eliquis secondary to history of A. fib. He denies missing any doses or being off his medication recently. He also complains of increased shortness of breath with mild cough over the past 2 or 3 days. He states last night he woke up in the middle the night having trouble catching his breath and had to sit on the side of bed for a while. No significant chest pain. Cough is nonproductive. [facility] Medical History Atrial flutter Gonzalez esophagus Chronic pain Diabetes Essential hypertension Neck pain with history of cervical spinal surgery On amiodarone therapy (04/21/21) Parkinson disease Rheumatoid arthritis Skin cancer Home Medications carbidopa-levodopa 25 - 100 tab PO TID 10/14/17 [History Last Taken 03/16/21] esomeprazole magnesium [Nexium] 40 mg PO DAILY 10/14/17 [History Last Taken 04/21/21] simvastatin 20 mg PO QHS 10/14/17 [History Last Taken 03/15/21] Xtampza ER 18 - 36 mg PO BID 03/16/21 [History Last Taken 03/16/21] ascorbic acid (vitamin C) [Vitamin C] 1 g PO BID 03/16/21 [History Last Taken 03/16/21] aspirin 81 mg PO DAILY 03/16/21 [History Last Taken Unknown] cholecalciferol (vitamin D3) [Vitamin D3] 25 mcg PO DAILY 03/16/21 [History Last Taken 03/16/21] multivitamin 1 tab PO DAILY 03/16/21 [History Last Taken 03/15/21] omega-3 fatty acids-vitamin E 1 cap PO DAILY 03/16/21 [History Last Taken 03/15/21] lisinopril [Zestril] 20 mg PO DAILY #0 tab 03/17/21 [Rx Last Taken 04/21/21] metoprolol tartrate 100 mg tablet 100 mg PO BID #60 tab 03/27/21 [Rx Last Taken 04/21/21] hydrochlorothiazide 25 mg tablet 25 mg PO DAILY #30 tab 03/28/21 [Rx Last Taken 04/21/21] apixaban 5 mg tablet 5 mg PO BID #180 tab 05/12/21 [Rx Last Taken Unknown] furosemide 40 mg tablet 40 mg PO .COMPLEX #10 tab 05/15/21 [Rx Last Taken Unknown] Allergy/AdvReac Type Severity Reaction Status Date / Time fentanyl Allergy Rash Verified 05/25/21 11:08 Iodinated Contrast Media Allergy Rash Verified 05/25/21 11:08 [CONTRASTS] morphine Allergy Rash Verified 05/25/21 11:08 Family History Mother Myocardial infarction Father Liver cirrhosis Sister Atrial fibrillation Cancer Hypertension Hyperlipidemia Brother Atrial fibrillation Hypertension Unknown Myocardial infarction Two cousins Other Heart disease Surgical History History of appendectomy History of cardioversion (04/21/21) History of left heart catheterization (03/17/21) Social History Smoking Status: Former smoker quit date: 08/23/10 pack-years: 45 ROS ROS ED Constitutional Constitutional ED: Denies chills or fever(s) Eyes Eyes: Denies change in vision ENT ENT ED: Denies sore throat Cardiovascular Cardiovascular: Denies chest pain Respiratory/Chest Respiratory/Chest: Reports cough and dyspnea Gastrointestinal Gastrointestinal: Denies abdominal pain, diarrhea, nausea or vomiting Genitourinary Genitourinary ED: Denies dysuria Musculoskeletal Musculoskeletal: Denies back pain Integumentary Reports other Details: Ecchymoses ; Denies rash Neurologic Neurologic: Denies headache(s) or weakness Allergic/Immunologic Allergic/Immunologic ED: Denies urticaria EXAM Physical Exam Const Vital Signs: 05/25/21 11:08 05/25/21 11:12 05/25/21 11:24 Temperature 97.0 F L 97.0 F L Temperature Source Temporal Temporal Pulse Rate 70 70 Respiratory Rate 19 H 19 H Respiratory Effort Short of Breath Respiratory Depth Normal Respiratory Pattern Normal Blood Pressure 130/85 H 130/85 H Blood Pressure Mean 100 100 Pulse Ox 98 98 Oxygen Delivery Method Room Air Room Air Room Air 05/25/21 12:44 05/25/21 13:29 05/25/21 15:13 Temperature 97.8 F Temperature Source Oral Pulse Rate 68 98 98 Respiratory Rate 19 H 18 18 Respiratory Effort Respiratory Depth Respiratory Pattern Blood Pressure 124/69 H 142/93 H 140/101 H Blood Pressure Mean 87 109 114 Pulse Ox 95 97 96 Oxygen Delivery Method Room Air Room Air Positive well nourished and well developed General Appearance ED: well developed HEENT Reports normocephalic and head/scalp atraumatic Eyes PERRL and EOMs intact bilaterally Neck supple Chest Wall inspection of chest normal and palpation of chest normal Resp normal respiratory effort and clear to auscultation bilaterally Cardio regular rate and regular rhythm GI normal to inspection, nondistended, normoactive bowel sounds Palpation: soft Extremity Extremity Narrative: Mild edema to the right lower extremity. Ecchymosis noted to the base of the right second, third, and fourth toes. No bony tenderness with full range of motion. Neuro oriented x3 and no sensory deficits noted Sensorium / Orientation: alert Motor Exam: strength 5/5 throughout Psych mental status grossly normal MDM MDM MDM Narrative Medical decision making narrative: Chest x-ray, EKG, lab work obtained. Right lower quadrant ultrasound ordered. Lab Data Attestation: I reviewed the patient's lab results. Labs: Laboratory Results - last 24 hr 05/25/21 05/25/21 05/25/21 11:57 11:57 11:57 WBC 7.5 RBC 4.59 L Hgb 13.6 Hct 40.9 MCV 89.1 MCH 29.6 MCHC 33.3 RDW Std Deviation 43.0 RDW Coeff of Mele 13.2 Plt Count 223 MPV 10.8 Immature Gran % (Auto) 0.500 Neut % (Auto) 75.3 H Lymph % (Auto) 13.0 L [place] % (Auto) 10.0 Eos % (Auto) 0.9 Baso % (Auto) 0.3 Absolute Neuts (auto) 5.6 Absolute Lymphs (auto) 0.97 Nucleated RBC % 0 Sodium 143 Potassium 3.5 Chloride 108 H Carbon Dioxide 27.0 Anion Gap 8 BUN 22 H Creatinine 1.10 Estim Creat Clear Calc 68.74 Est GFR (MDRD) Af Amer 87 Est GFR (MDRD) Non-Af 72 BUN/Creatinine Ratio 20.0 Glucose 106 Calcium 8.5 Troponin I High Sens 6 B-Natriuretic Peptide 127.5 H Radiography Chest X-Ray - ED: 1 View, Read by ED Physician and Chronic Changes Diagnostic Testing: Radiology Impression Chest X-Ray 05/25/21 12:00 IMPRESSION: Normal x-ray examination of the chest. Electronically Signed: Anastasiia Eller MD at 13:41 EDT Tel , Service support , EKG Initial EKG: Attestation: I personally reviewed and interpreted this EKG as follows: Interpretation: Sinus Rhythm (Sinus at 64 with no acute ischemia.) Treatment and Re-Evaluation Comments:: Repeat evaluation patient resting comfortably. Test results reviewed with him. Venous ultrasound reveals no evidence of DVT. Troponin is normal at 6. BNP is minimally elevated at 127. Chest x-ray does not show significant evidence of CHF. Patient does state that he has some extra water pills that his doctor will tell him to take for couple days when he builds up with extra fluid. He will do this for the next 3 days. Pa wrap will be applied to the right leg to help with light compression. He was advised to follow-up with his x ray operator soon as possible. Discharge Plan Triage Chief Complaint: Shortness of Breath ED Provider: Sara Ramirez Dx/Rx/DC Orders Clinical Impression: Dyspnea, Edema of right lower extremity Instructions: ED Dyspnea, ED Peripheral Edema, Unilateral Prescriptions: No Action metoprolol tartrate 100 mg tablet 100 mg PO BID Qty: 60 RF: 11 simvastatin 20 MG tablet 20 mg PO QHS RF: 0 esomeprazole magnesium [Nexium] 40 MG capsule 40 mg PO DAILY RF: 0 carbidopa-levodopa 1 TABLET tablet 25 - 100 tab PO TID RF: 0 ascorbic acid (vitamin C) [Vitamin C] 1,000 mg Tablet 1 g PO BID RF: 0 aspirin 81 mg Tablet 81 mg PO DAILY RF: 0 omega-3 fatty acids-vitamin E 1,000 mg Capsule 1 cap PO DAILY RF: 0 cholecalciferol (vitamin D3) [Vitamin D3] 25 mcg (1,000 unit) Tablet,Chewable 25 mcg PO DAILY RF: 0 Xtampza ER 18 mg cap,sprinkl,ER12hr(DONT CRUSH) 18 - 36 mg PO BID RF: 0 multivitamin Tablet 1 tab PO DAILY RF: 0 lisinopril [Zestril] 10 MG tablet 20 mg PO DAILY Qty: 0 RF: 0 hydrochlorothiazide 25 mg tablet 25 mg PO DAILY Qty: 30 RF: 11 Eliquis 5 mg tablet 5 mg PO BID Qty: 180 RF: 3 furosemide 40 mg tablet 40 mg PO .COMPLEX Qty: 10 RF: 0 Primary Care Provider: Mey Cornelius Referrals: Mey Cornelius MD [Primary Care Provider] - Activity Restrictions/Additional Instructions: As discussed, please take the extra water pill for the next 3 days. Follow-up with your x ray operator this coming week. Return for worsening symptoms or concerns. Disposition Disposition: Home, Self Care
--- NOTE | 2021-05-25 12:00 | RAD_ITS ---
STUDY: X-RAY CHEST REASON FOR EXAM: Male, 65 years old. sob TECHNIQUE: Frontal portable view of the chest COMPARISON: 16 March 2021 FINDINGS: The lungs are clear and expanded. There is no demonstrated pleural abnormality. Normal size heart. Normal mediastinum and janel. Normal visualized pulmonary arteries. Normal visualized aortic arch and descending thoracic aorta. Normal visualized thoracic spine. Normal visualized ribs, clavicles, and shoulders. There is ACDF. There is no demonstrated abnormality of the visualized soft tissue structures of the upper abdomen. RAD/Chest 1 View (Portable) IMPRESSION: Normal x-ray examination of the chest. Electronically Signed: Anastasiia Eller MD at 13:41 EDT Tel , Service support ,
[2021-05-25 12:12] LABS: Absolute Lymphocyte Count 0.97 X10^3/uL (0.83-4.51); Absolute Neutrophil Count 5.6 X10^3/uL (2.0-7.7); Basophil# 0.02 X10^3/uL; Basophil% 0.3 % (0-1); Eosinophil# 0.07 X10^3/uL; Eosinophils% 0.9 % (0-5); Hematocrit 40.9 % (40-54); Hemoglobin 13.6 g/dL (13.0-16.5); Lymphocyte # 0.97 X10^3/ul (0.83-4.51); Mean Corp Hgb Conc 33.3 g/dL (32-36); Mean Corpuscular Hgb 29.6 pg (27.0-32.0); Mean Corpuscular Volume 89.1 fL (80-94); Mean Platelet Vol. 10.8 fl (6.2-12.0); Monocyte# 0.75 X10^3/uL; NRBC Flagged by Analyzer 0 % (0-5); Neutrophil # 5.62 X10^3/uL (2.7-7.7); Neutrophil % 75.3 % (47-70); Platelet Count 223 K/mm3 (150-450); RBC Distribution Width CV 13.2 % (11.6-14.6); Red Blood Count 4.59 M/mm3 (4.6-6.2); White Blood Count 7.5 K/mm3 (4.4-11.0)
[2021-05-25 12:22] LABS: BNP,B-Type NATRIURETIC PEPTIDE 127.5 pg/mL (0-100)
[2021-05-25 12:25] LABS: Anion Gap 8 (5-15); BUN 22 mg/dL (7-18); Calcium,Total 8.5 mg/dL (8.5-10.1); Chloride 108 mmol/L (98-107); EST Glomerular Filtration Rate 72 mL/min (>60); Est Glom Filt Rate - Afr Amer 87 mL/min (>60); Estimated Creatinine Clearance 68.74 ml/min; Glucose 106 mg/dL (74-106); Potassium 3.5 mmol/L (3.5-5.1); Sodium Level 143 mmol/L (136-145); Troponin-I HS 6 pg/mL (3.0-78.0)
--- NOTE | 2021-05-25 12:49 | VDLE_ITS ---
Reason For Study: Swelling RIGHT LEFT GSV is normal. CFV is compressible, spontaneous, phasic, CFV is compressible, spontaneous, phasic, competent, and demonstrates normal competent and demonstrates normal augmentation. augmentation. FV is compressible, spontaneous, phasic, competent and demonstrates normal augmentation. POP V is compressible, spontaneous, phasic, competent and demonstrates normal augmentation. T/P Trunk is compressible. PTV is compressible. RT PerV is compressible. Venous flow is slightly pulsatile. Procedure This is a venous duplex using B-mode, color flow and spectral Doppler. Exam performed portable in ED. A preliminary report was called and/or faxed to Dr. Ramirez. VL/Venous Duplex US, Unilateral Interpretation Summary Deep veins of the right lower extremity are patent and compressible segmentally . There is no evidence of right lower extremity deep vein thrombosis. Valvular competence george ears intact within the proximal deep venous system on the right . The right great saphenous vein a ppears patent and compressible segmentally. Pulsatile flow is noted in the right lower extremity deep venous system, which may be indicative of elevated central venous pressure (i.e. congestive he art failure, tricuspid valve insufficiency, etc.). Clinical correlation is advised. Ordering Physician: Sara Ramirez Referring Physician: Mey Cornelius Performed By: Keesha Gillis, [place], RVT
== END 2021-05-25 15:32 | disposition home or self-care (01) ==
PROVIDERS: Emergency Provider Emergency Medicine; PCP Internal Medicine
DX: R06.00 Dyspnea, unspecified (principal); R60.0 Localized edema; I10 Essential (primary) hypertension; I48.91 Unspecified atrial fibrillation; I48.92 Unspecified atrial flutter; K22.70 Barrett's esophagus without dysplasia; Z79.01 Long term (current) use of anticoagulants; Z79.82 Long term (current) use of aspirin; Z87.891 Personal history of nicotine dependence; Z79.899 Other long term (current) drug therapy
CPT/HCPCS: 71045; 80048; 83880; 84484; 85025; 87426; 93005; 93971; 99284; A4216

== ENCOUNTER → 2021-05-27 09:00 | Outpatient (CLI) | payer MEDICARE, SELFPAY | PROVIDERS: PCP Internal Medicine; Visit Provider Nurse Practitioner Acute Care | DX: Z46.89 Encounter for fitting and adjustment of other specified devices (principal) | CPT/HCPCS: 98960; G0463 ==

== ENCOUNTER → 2021-06-03 10:36 | Outpatient (CLI) | payer MEDICARE, SELFPAY ==
--- NOTE | 2021-06-03 14:51 | PFTCOMP ---
COMPLETE PULMONARY FUNCTION TEST INTERPRETATION Brief HPI: Patient is a 65 year old male, currently under the care of Gustavo Gillis, who presents to [facility] for complete pulmonary function tests secondary to diagnosis of dyspnea. Respiratory therapist reports good effort and reproducible results. Interpretation: Forced expiration spirometry shows no large airways obstructive ventilatory defect with an FEV1 of 90% predicted. There is no significant bronchodilator response by strict ATS criteria. Spirograms are of good quality and plateau slowly, indicating slowly emptying areas of the lungs. The respiratory flow volume loop shows decreased expiratory flow rates at high lung volumes consistent with small airways obstruction. Lung volumes by body plethysmography show a normal total lung capacity at 6.27 L, 95% predicted. All other lung volumes are within normal limits. Diffusion capacity by carbon monoxide is normal at 89% predicted. The airway resistance is normal. No previous pulmonary function tests were available for review. Impression: These pulmonary function tests are grossly within normal limits. There is some stigmata of small airways disease, so bronchoprovocation study could be considered.
== END ==
PROVIDERS: PCP Internal Medicine; Referring Provider Nurse Practitioner Family; Visit Provider Nurse Practitioner Family
DX: R06.00 Dyspnea, unspecified (principal); G47.33 Obstructive sleep apnea (adult) (pediatric); I10 Essential (primary) hypertension; I48.20 Chronic atrial fibrillation, unspecified; R60.0 Localized edema
CPT/HCPCS: 94060; 94726; 94729

== ENCOUNTER 2021-06-09 16:36 | Emergency (ER) | payer MEDICARE, SELFPAY ==
[2021-06-09 16:36] VITALS: BP 123/76; PULSE 72; RESP 16; TEMP 36.7; O2SAT 97; BMI 40.1
--- NOTE | 2021-06-09 17:12 | CT_ITS ---
EXAM: CT HEAD WITHOUT INTRAVENOUS CONTRAST : 1955 CLINICAL INDICATION: dizziness TECHNIQUE: Multiple axial images were obtained of the head without intravenous contrast. This CT exam was performed using one or more of the following dose reduction techniques: automated exposure control, adjustment of the mA and/or kV according to patient size, and/or use of iterative reconstruction technique. This report was created using [employer] report generation technology. COMPARISON: 03/01/2018 FINDINGS: BRAIN AND EXTRA-AXIAL SPACES: Unremarkable. No intra- or extra-axial hemorrhage. No evidence of acute infarct. No intracranial mass or mass effect. There is preservation of the brito/white matter interface. Posterior fossa structures are unremarkable. Ventricles are appropriate for age. No hydrocephalus. Basal cisterns are patent. BONES/JOINTS: Unremarkable. No discrete lytic or blastic abnormalities. SINUSES: Unremarkable as visualized. Clear. MASTOID AIR CELLS: Unremarkable. Clear. ORBITS: Visualized globes, extraocular muscles, optic nerves and retrobulbar fat appear unremarkable. CT/Brain/Head without Contrast IMPRESSION: Negative head/brain CT without intravenous contrast. There has been no significant change from the reference examination. Individualized dose optimization techniques were used for this CT. at 1802 Reported and signed by: Ranjeet Rangel MD Electronically Signed: Ranjeet Rangel MD at 18:01 EDT Tel , Service support ,
--- NOTE | 2021-06-09 17:15 | EKG12_ITS ---
Test Reason : AFIB Blood Pressure : / mmHG Vent. Rate : 075 BPM Atrial Rate : 075 BPM P-R Int : 144 ms QRS Dur : 094 ms QT Int : 412 ms P-R-T Axes : 063 027 -06 degrees QTc Int : 460 ms Normal sinus rhythm Normal ECG Confirmed by LUISANA CARLSON, MICHELLE ([id number]), publications editor MARNIE JURADO ([id number]) on 06/11/2021 9:29:39 AM Referred By: NINA Confirmed By:MICHELLE LIEBERMAN MD
[2021-06-09] MEDS: Meclizine HCl 25 MG Tablet PO (17:21)
--- NOTE | 2021-06-09 17:42 | RAD_ITS ---
EXAM: XR CHEST, 1 VIEW : 1955 CLINICAL INDICATION: dizziness TECHNIQUE: Frontal view of the chest. This report was created using [employer] report generation technology. COMPARISON: 05/25/2021 FINDINGS: LUNGS AND PLEURAL SPACES: Unremarkable. No consolidation or edema. No pneumothorax. No effusion. HEART: Unremarkable. Cardiac silhouette not enlarged. MEDIASTINUM: Central airways and mediastinal contour are unremarkable. BONES/JOINTS: Unremarkable. SOFT TISSUES: Unremarkable. RAD/Chest 1 View (Portable) IMPRESSION: No radiographic evidence of acute cardiopulmonary disease. at 1833 Reported and signed by: Ranjeet Rangel MD Electronically Signed: Ranjeet Rangel MD at 18:32 EDT Tel , Service support ,
[2021-06-09 17:45] LABS: Absolute Lymphocyte Count 1.24 X10^3/uL (0.83-4.51); Absolute Neutrophil Count 4.9 X10^3/uL (2.0-7.7); Basophil# 0.01 X10^3/uL; Basophil% 0.1 % (0-1); Eosinophil# 0.05 X10^3/uL; Eosinophils% 0.7 % (0-5); Hematocrit 40.5 % (40-54); Hemoglobin 13.3 g/dL (13.0-16.5); Lymphocyte # 1.24 X10^3/ul (0.83-4.51); Lymphocyte % 17.9 % (19-41); Mean Corp Hgb Conc 32.8 g/dL (32-36); Mean Corpuscular Hgb 30.1 pg (27.0-32.0); Mean Corpuscular Volume 91.6 fL (80-94); Monocyte# 0.71 X10^3/uL; Monocyte% 10.3 % (0-10); NRBC Flagged by Analyzer 0 % (0-5); Neutrophil # 4.88 X10^3/uL (2.7-7.7); Neutrophil % 70.7 % (47-70); Platelet Count 207 K/mm3 (150-450); RBC Distribution Width CV 13.2 % (11.6-14.6); RBC Distribution Width SD 44.8 fl (35.1-43.9); Red Blood Count 4.42 M/mm3 (4.6-6.2); White Blood Count 6.9 K/mm3 (4.4-11.0)
[2021-06-09 17:56] LABS: Anion Gap 5 (5-15); BUN 30 mg/dL (7-18); BUN/Creat Ratio 25.9 RATIO (10-20); Calcium,Total 8.5 mg/dL (8.5-10.1); Chloride 110 mmol/L (98-107); Creatinine, Serum 1.16 mg/dL (0.70-1.30); EST Glomerular Filtration Rate 67 mL/min (>60); Est Glom Filt Rate - Afr Amer 82 mL/min (>60); Glucose 101 mg/dL (74-106); Potassium 3.9 mmol/L (3.5-5.1); Sodium Level 141 mmol/L (136-145); Troponin-I HS 6 pg/mL (3.0-78.0)
[2021-06-09 18:11] VITALS: BP 121/83; BP 124/83; BP 137/94; PULSE 70; PULSE 72; PULSE 74
[2021-06-09 19:10] VITALS: BP 128/86
[2021-06-09] MEDS: 0.9% Normal Saline 1,000 ML 999 ML IV (19:10)
[2021-06-09 21:05] VITALS: BP 107/66
--- NOTE | 2021-06-09 21:11 | EDS_ITS ---
HPI History of Present Illness Chief Complaint: Dizziness Narrative Narrative: Patient is a 65-year-old male who states that today while he was at work he noticed if he would bend over he would get dizzy. He describes this is a combination of lightheadedness and motion. He states that if he stood still then the symptoms would resolve. He reports he did improve to the point where he was able to drive home from work today but the dizzy symptoms have returned intermittently and secondary to this comes in for evaluation. [facility] Medical History Atrial flutter Gonzalez esophagus Chronic pain Diabetes Essential hypertension Neck pain with history of cervical spinal surgery On amiodarone therapy (04/21/21) Parkinson disease Rheumatoid arthritis Skin cancer Home Medications carbidopa-levodopa 25 - 100 tab PO TID 10/14/17 [History Last Taken 03/16/21] esomeprazole magnesium [Nexium] 40 mg PO DAILY 10/14/17 [History Last Taken 04/21/21] simvastatin 20 mg PO QHS 10/14/17 [History Last Taken 03/15/21] Xtampza ER 18 - 36 mg PO BID 03/16/21 [History Last Taken 03/16/21] ascorbic acid (vitamin C) [Vitamin C] 1 g PO BID 03/16/21 [History Last Taken 03/16/21] aspirin 81 mg PO DAILY 03/16/21 [History Last Taken Unknown] cholecalciferol (vitamin D3) [Vitamin D3] 25 mcg PO DAILY 03/16/21 [History Last Taken 03/16/21] multivitamin 1 tab PO DAILY 03/16/21 [History Last Taken 03/15/21] omega-3 fatty acids-vitamin E 1 cap PO DAILY 03/16/21 [History Last Taken 03/15/21] lisinopril [Zestril] 20 mg PO DAILY #0 tab 03/17/21 [Rx Last Taken 04/21/21] metoprolol tartrate 100 mg tablet 100 mg PO BID #60 tab 03/27/21 [Rx Last Taken 04/21/21] apixaban 5 mg tablet 5 mg PO BID #180 tab 05/12/21 [Rx Last Taken Unknown] diltiazem HCl 120 mg capsule,extended release 24 hr 120 mg PO QAM #30 cap 05/29/21 [Rx Last Taken Unknown] furosemide 40 mg tablet 40 mg PO Q OTHER DAY #0 tab 06/05/21 [Rx Last Taken Unknown] diazepam [Valium] 5 mg PO TID PRN #15 tab 06/09/21 [Rx Last Taken Unknown] Allergy/AdvReac Type Severity Reaction Status Date / Time fentanyl Allergy Rash Verified 06/09/21 16:39 Iodinated Contrast Media Allergy Rash Verified 06/09/21 16:39 [CONTRASTS] morphine Allergy Rash Verified 06/09/21 16:39 Family History Mother Myocardial infarction Father Liver cirrhosis Sister Atrial fibrillation Cancer Hypertension Hyperlipidemia Brother Atrial fibrillation Hypertension Unknown Myocardial infarction Two cousins Other Heart disease Surgical History History of appendectomy History of cardioversion (04/21/21) History of left heart catheterization (03/17/21) Social History Smoking Status: Former smoker quit date: 08/23/10 pack-years: 45 ROS ROS ED Constitutional Constitutional ED: Denies chills or fever(s) Eyes Eyes: Denies change in vision ENT ENT ED: Denies ear pain or sore throat Cardiovascular Cardiovascular: Denies chest pain Respiratory/Chest Respiratory/Chest: Denies cough or dyspnea Gastrointestinal Gastrointestinal: Reports nausea; Denies abdominal pain, diarrhea or vomiting Genitourinary Genitourinary ED: Denies dysuria Musculoskeletal Musculoskeletal: Denies myalgias Integumentary Denies rash Neurologic Neurologic: Reports other Details: Positive dizziness ; Denies headache(s) Hematologic/Lymphatic Hematologic/Lymphatic: Denies easy bleeding or easy bruising EXAM Physical Exam Const Vital Signs: 06/09/21 16:36 06/09/21 16:49 06/09/21 18:11 Temperature 98.1 F Temperature Source Temporal Pulse Rate 72 Pulse Rate [Lying] 74 Pulse Rate [Sitting] 72 Pulse Rate [Standing] 70 Respiratory Rate 16 Respiratory Effort Normal Non-Labored Blood Pressure 123/76 H Blood Pressure [Lying] 121/83 H Blood Pressure [Sitting] 124/83 H Blood Pressure [Standing] 137/94 H Blood Pressure Mean 91 Blood Pressure Mean [Lying] 95 Blood Pressure Mean [Sitting] 96 Blood Pressure Mean [Standing] 108 Pulse Ox 97 Oxygen Delivery Method Room Air 06/09/21 19:10 06/09/21 21:05 Temperature Temperature Source Pulse Rate Pulse Rate [Lying] Pulse Rate [Sitting] Pulse Rate [Standing] Respiratory Rate Respiratory Effort Blood Pressure 128/86 H 107/66 Blood Pressure [Lying] Blood Pressure [Sitting] Blood Pressure [Standing] Blood Pressure Mean 100 79 Blood Pressure Mean [Lying] Blood Pressure Mean [Sitting] Blood Pressure Mean [Standing] Pulse Ox Oxygen Delivery Method Positive well nourished and well developed General Appearance ED: well developed HEENT Reports TM's clear and moist mucous membranes Tympanic Membrane ED: Yes TM's clear Eyes PERRL and EOMs intact bilaterally Neck supple Neck Narrative: No meningeal signs Resp normal respiratory effort and clear to auscultation bilaterally Cardio regular rate and regular rhythm GI non-tender, non-distended and no masses Auscultation: normoactive bowel sounds Palpation: soft Extremity normal to inspection Neuro oriented x3 and CN's II-XII intact bilaterally Neuro Narrative: Cranial nerves II through XII are grossly intact there are no focal neurologic deficits. No pronator drift no dysmetria no truncal ataxia. NIH stroke scale score of zero. Positive Hallpike [place]field exam on right. Sensorium / Orientation: alert Motor Exam: strength 5/5 throughout Psych mental status grossly normal Skin no rashes or lesions noted MDM MDM MDM Narrative Medical decision making narrative: Patient presented with normal neurologic exam and his history and constellation of symptoms is most consistent with a peripheral vertigo. However with his multiple medical comorbidities I did elect to perform a basic work-up. Blood work revealed no acute findings orthostatic vital signs were negative and head CT revealed no obvious bleed or mass. Patient was given IV fluids and Antivert and was able to ambulate with a steady gait. Therefore at this time his work-up is negative and his history and exam points more to peripheral vertigo as a cause of the symptoms he is safe for discharge Lab Data Attestation: I reviewed the patient's lab results. Labs: Laboratory Results - last 24 hr 06/09/21 06/09/21 17:27 17:27 WBC 6.9 RBC 4.42 L Hgb 13.3 Hct 40.5 MCV 91.6 MCH 30.1 MCHC 32.8 RDW Std Deviation 44.8 H RDW Coeff of Mele 13.2 Plt Count 207 MPV 11.0 Immature Gran % (Auto) 0.300 Neut % (Auto) 70.7 H Lymph % (Auto) 17.9 L Graham % (Auto) 10.3 H Eos % (Auto) 0.7 Baso % (Auto) 0.1 Absolute Neuts (auto) 4.9 Absolute Lymphs (auto) 1.24 Nucleated RBC % 0 Sodium 141 Potassium 3.9 Chloride 110 H Carbon Dioxide 26.0 Anion Gap 5 BUN 30 H Creatinine 1.16 Estim Creat Clear Calc 67.30 Est GFR (MDRD) Af Amer 82 Est GFR (MDRD) Non-Af 67 BUN/Creatinine Ratio 25.9 H Glucose 101 Calcium 8.5 Magnesium 2.0 Troponin I High Sens 6 Radiography Diagnostic Testing: Clinical Impression(s) from Imaging Studies Brain CT 06/09/21 17:12 IMPRESSION: Negative head/brain CT without intravenous contrast. There has been no significant change from the reference examination. Individualized dose optimization techniques were used for this CT. at 1802 Reported and signed by: Ranjeet Rangel MD Electronically Signed: Ranjeet Rangel MD at 18:01 EDT Tel , Service support , Chest X-Ray 06/09/21 17:42 IMPRESSION: No radiographic evidence of acute cardiopulmonary disease. at 1833 Reported and signed by: Ranjeet Rangel MD Electronically Signed: Ranjeet Rangel MD at 18:32 EDT Tel , Service support , Discharge Plan Triage Chief Complaint: Dizziness ED Provider: Linus Zhu Dx/Rx/DC Orders Clinical Impression: Other and unspecified peripheral vertigo Instructions: Dizziness Vertigo and Balance ..., ED Dizziness, Uncertain Cause Prescriptions: New diazepam [Valium] 5 mg tablet 5 mg PO TID PRN (Reason: dizziness or vertigo) Qty: 15 RF: 0 No Action metoprolol tartrate 100 mg tablet 100 mg PO BID Qty: 60 RF: 11 simvastatin 20 MG tablet 20 mg PO QHS RF: 0 esomeprazole magnesium [Nexium] 40 MG capsule 40 mg PO DAILY RF: 0 carbidopa-levodopa 1 TABLET tablet 25 - 100 tab PO TID RF: 0 ascorbic acid (vitamin C) [Vitamin C] 1,000 mg Tablet 1 g PO BID RF: 0 aspirin 81 mg Tablet 81 mg PO DAILY RF: 0 omega-3 fatty acids-vitamin E 1,000 mg Capsule 1 cap PO DAILY RF: 0 cholecalciferol (vitamin D3) [Vitamin D3] 25 mcg (1,000 unit) Tablet,Chewable 25 mcg PO DAILY RF: 0 Xtampza ER 18 mg cap,sprinkl,ER12hr(DONT CRUSH) 18 - 36 mg PO BID RF: 0 multivitamin Tablet 1 tab PO DAILY RF: 0 lisinopril [Zestril] 10 MG tablet 20 mg PO DAILY Qty: 0 RF: 0 Eliquis 5 mg tablet 5 mg PO BID Qty: 180 RF: 3 diltiazem HCl 120 mg capsule,extended release 24hr 120 mg PO QAM Qty: 30 RF: 12 furosemide 40 mg tablet 40 mg PO Q OTHER DAY Qty: 0 RF: 0 Primary Care Provider: Mey Cornelius Referrals: Mey Cornelius MD [Primary Care Provider] - Disposition Disposition: Home, Self Care Discharge Date/Time: 06/09/21 22:10
== END 2021-06-09 22:10 | disposition home or self-care (01) ==
PROVIDERS: Emergency Provider Emergency Medicine; PCP Internal Medicine
DX: H81.399 Other peripheral vertigo, unspecified ear (principal); I48.92 Unspecified atrial flutter; E11.9 Type 2 diabetes mellitus without complications; I10 Essential (primary) hypertension; M06.9 Rheumatoid arthritis, unspecified; G20 Parkinson's disease; Z79.02 Long term (current) use of antithrombotics/antiplatelets; Z79.899 Other long term (current) drug therapy; Z87.891 Personal history of nicotine dependence
CPT/HCPCS: 70450; 71045; 80048; 83735; 84484; 85025; 93005; 96360; 99284; J7030; A4216

== ENCOUNTER 2021-09-16 10:09 | Outpatient (CLI) | payer MEDICARE, SELFPAY ==
[2021-09-16 11:54] LABS: Anion Gap 7 (5-15); BUN 23 mg/dL (7-18); BUN/Creat Ratio 21.1 RATIO (10-20); Calcium,Total 8.8 mg/dL (8.5-10.1); Chloride 106 mmol/L (98-107); Creatinine, Serum 1.09 mg/dL (0.70-1.30); EST Glomerular Filtration Rate 72 mL/min (>60); Est Glom Filt Rate - Afr Amer 88 mL/min (>60); Glucose 97 mg/dL (74-106); Potassium 3.8 mmol/L (3.5-5.1); Sodium Level 139 mmol/L (136-145)
== END 2021-09-16 23:59 | disposition short-term general hospital (02) ==
LOC: LAB 10:11
PROVIDERS: PCP Internal Medicine; Referring Provider Physician Assistant Medical; Visit Provider Physician Assistant Medical
DX: I48.20 Chronic atrial fibrillation, unspecified (principal); I10 Essential (primary) hypertension
CPT/HCPCS: 36415; 80048

== ENCOUNTER 2021-10-07 09:00 | Outpatient (CLI) | payer MEDICARE, SELFPAY | END 2021-10-07 23:59 | disposition home or self-care (01) | LOC: SL 11:05 | PROVIDERS: PCP Internal Medicine; Visit Provider Nurse Practitioner Acute Care | DX: Z00.00 Encounter for general adult medical examination without abnormal findings (principal) ==

== ENCOUNTER 2021-10-24 16:56 | Emergency (ER) | payer MEDICARE, SELFPAY ==
[2021-10-24 16:57] VITALS: BP 180/103; PULSE 100; RESP 17; TEMP 37; O2SAT 97; BMI 39.9
[2021-10-24 17:10] VITALS: BP 174/106; PULSE 87; RESP 22; TEMP 37; O2SAT 97
--- NOTE | 2021-10-24 17:23 | EKG12_ITS ---
Test Reason : CP Blood Pressure : / mmHG Vent. Rate : 087 BPM Atrial Rate : 208 BPM P-R Int : 000 ms QRS Dur : 094 ms QT Int : 384 ms P-R-T Axes : 000 037 -06 degrees QTc Int : 462 ms Atrial fibrillation Abnormal ECG Confirmed by LUISANA CARLSON, MICHELLE ([id number]), editor book MARNIE JURADO ([id number]) on 10/27/2021 10:37:30 AM Referred By: TL/PC Confirmed By:MICHELLE LIEBERMAN MD
--- NOTE | 2021-10-24 17:24 | ED.VIS.CHEST ---
HPI History of Present Illness Chief Complaint: Chest Pain Narrative Narrative: 66-year-old male with history of atrial fibrillation on Eliquis, hypertension, Parkinson's disease, hyperlipidemia presents to the emergency department with concerning of left-sided chest pain, increased shortness of breath while walking in his garage 2 to 3 hours ago. Patient recently was diagnosed with atrial fibrillation 6 months ago, this is the last time he felt chest pain like this. Patient denies any fevers, chills. Patient denies any injuries. Patient states that the pain did decrease greatly whenever he was at rest, he is here for evaluation [facility] Medical History (Updated 10/24/21 @ 20:15 by MAEGAN Pruitt) Atrial fibrillation Atrial flutter Gonzalez esophagus Chronic pain Diabetes Essential hypertension Neck pain with history of cervical spinal surgery On amiodarone therapy (04/21/21) Parkinson disease Rheumatoid arthritis Skin cancer Home Medications carbidopa-levodopa 25 - 100 tab PO TID 10/14/17 [History Last Taken 03/16/21] esomeprazole magnesium [Nexium] 40 mg PO DAILY 10/14/17 [History Last Taken 04/21/21] simvastatin 20 mg PO QHS 10/14/17 [History Last Taken 03/15/21] Xtampza ER 18 - 36 mg PO BID 03/16/21 [History Last Taken 03/16/21] ascorbic acid (vitamin C) [Vitamin C] 1 g PO BID 03/16/21 [History Last Taken 03/16/21] aspirin 81 mg PO DAILY 03/16/21 [History Last Taken Unknown] cholecalciferol (vitamin D3) [Vitamin D3] 25 mcg PO DAILY 03/16/21 [History Last Taken 03/16/21] multivitamin 1 tab PO DAILY 03/16/21 [History Last Taken 03/15/21] omega-3 fatty acids-vitamin E 1 cap PO DAILY 03/16/21 [History Last Taken 03/15/21] apixaban 5 mg tablet 5 mg PO BID #180 tab 07/25/21 [Rx Last Taken Unknown] diltiazem HCl 240 mg capsule,extended release 24 hr 240 mg PO DAILY #90 cap 09/04/21 [Rx Last Taken Unknown] furosemide 40 mg tablet 40 mg PO DAILY #180 tab 09/16/21 [Rx Last Taken Unknown] carvedilol 6.25 mg PO BID 10/24/21 [History Last Taken Unknown] melatonin 20 mg PO QHS 10/24/21 [History Last Taken Unknown] vitamin E 180 mg PO DAILY 10/24/21 [History Last Taken Unknown] Allergy/AdvReac Type Severity Reaction Status Date / Time fentanyl Allergy Rash Verified 09/16/21 09:26 Iodinated Contrast Media Allergy Rash Verified 09/16/21 09:26 [CONTRASTS] morphine Allergy Rash Verified 09/16/21 09:26 lisinopril AdvReac Intermediate Dry Verified 09/16/21 09:26 hacking cough losartan AdvReac Dry Verified 09/16/21 09:26 hacking cough Family History Mother Myocardial infarction Father Liver cirrhosis Sister Atrial fibrillation Cancer Hypertension Hyperlipidemia Brother Atrial fibrillation Hypertension Unknown Myocardial infarction Two cousins Other Heart disease Surgical History History of appendectomy History of cardioversion (04/21/21) History of left heart catheterization (03/17/21) Social History Smoking Status: Former smoker quit date: 08/23/00 pack-years: 45 ROS ROS ED ROS Narrative Constitutional: Negative for fever, chills, weight loss or gain, weakness Eyes: Negative for vision loss, vision change, double vision ENT: Negative for any hearing changes, ringing in the ears, dizziness, discharge, pain Nose: Negative for any congestion, runny nose, sinus pain, allergies Throat: Negative for any sore throat hoarseness, voice changes, Cardiovascular: Negative for any palpitations, racing heartbeat. Positive for chest pain and tightness Respiratory: Negative for any sputum production, hemoptysis. Positive for dyspnea, shortness of breath on exertion, cough Gastrointestinal: Negative for any abdominal pain, nausea, vomiting, diarrhea, constipation, blood in stool, blood in vomit : Negative for any urinary frequency, incontinence, dysuria, retention, blood in urine Muscle skeletal: Negative for any muscle joint pain, stiffness, myalgias, arthralgias, neck pain, back pain Neurological: Negative for any headache, head injury, dizziness, syncope, numbness or tingling Skin: Negative for any rashes, lumps, itching, abrasions, lacerations Psychiatric: Negative for any depression, anxiety, stress, suicidal ideation, homicidal ideation Hematologic: Negative for any easy bruising, excessive bruising, easy bleeding Allergies: Negative for any eczema, hives, rash EXAM Physical Exam Const Vital Signs: 10/24/21 16:57 10/24/21 17:10 10/24/21 17:28 Temperature 98.6 F 98.6 F Temperature Source Temporal Temporal Pulse Rate 100 87 Respiratory Rate 17 22 H Respiratory Pattern Normal Blood Pressure 180/103 H 174/106 H Blood Pressure Mean 128 128 Pulse Ox 97 97 97 Oxygen Delivery Method Room Air Room Air Room Air 10/24/21 18:38 10/24/21 19:00 Temperature Temperature Source Pulse Rate 83 89 Respiratory Rate 15 18 Respiratory Pattern Blood Pressure 152/113 H Blood Pressure Mean 126 Pulse Ox 96 96 Oxygen Delivery Method Room Air Room Air Positive well nourished, well developed and obese General Appearance ED: well developed Nutritional Appearance: obese HEENT normocephalic and atraumatic Eyes PERRL and EOMs intact bilaterally Neck no lymphadenopathy and supple Chest Wall inspection of chest normal Resp normal respiratory effort and clear to auscultation bilaterally Effort and Inspection: respiratory distress Cardio Rhythm: abnormal rhythm GI normal to inspection, nondistended, normoactive bowel sounds and non-tender Back/Spine no CVA tenderness Extremity normal to inspection Neuro oriented x3 Sensorium / Orientation: awake and alert Psych mental status grossly normal Skin no rashes or lesions noted MDM MDM MDM Narrative Medical decision making narrative: Patient appears well at rest, patient appears nontoxic, vital signs are stable. Patient presents the emerge department with left-sided chest pain, increased shortness of breath while working in his garage. Patient states that this has been ongoing for 1 week however he is here because it was worse today while working in the garage. Patient did receive a full cardiac work-up.Patient's laboratory values were grossly unremarkable, patient had 2 - high-sensitivity troponins, patient's BNP was 179.5 which is just slightly elevated, patient does take Lasix daily. Patient's EKG did show A. fib however was in a controlled rate. Patient did receive a chest x-ray which showed no acute cardiopulmonary disease or interval change. Patient's vital signs remained stable here, patient at rest is asymptomatic. Patient is scheduled for an ablation in 1 week, and he will keep this appointment. At this time, there is no indication of any AL, ACS, atrial fibrillation with rapid ventricular response. 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 Patient given strict instructions to return for any worsening chest pain, shortness of breath, fever chills nausea vomiting. Patient stable for discharge. Lab Data Labs: Laboratory Results - last 24 hr 10/24/21 10/24/21 10/24/21 17:10 17:10 17:10 WBC 5.8 RBC 4.74 Hgb 14.4 Hct 42.2 MCV 89.0 MCH 30.4 MCHC 34.1 RDW Std Deviation 43.1 RDW Coeff of Mele 13.3 Plt Count 207 MPV 10.7 Immature Gran % (Auto) 0.500 Neut % (Auto) 64.0 Lymph % (Auto) 23.3 Callahan % (Auto) 10.0 Eos % (Auto) 1.9 Baso % (Auto) 0.3 Absolute Neuts (auto) 3.7 Absolute Lymphs (auto) 1.35 Nucleated RBC % 0 PT 14.5 INR 1.2 Sodium 141 Potassium 3.6 Chloride 108 H Carbon Dioxide 28.0 Anion Gap 5 BUN 19 H Creatinine 1.00 Estim Creat Clear Calc 74.63 Est GFR (MDRD) Af Amer 97 Est GFR (MDRD) Non-Af 80 BUN/Creatinine Ratio 19.0 Glucose 91 Calcium 9.1 Troponin I High Sens 4 B-Natriuretic Peptide 10/24/21 10/24/21 17:10 19:08 WBC RBC Hgb Hct MCV MCH MCHC RDW Std Deviation RDW Coeff of Mele Plt Count MPV Immature Gran % (Auto) Neut % (Auto) Lymph % (Auto) Callahan % (Auto) Eos % (Auto) Baso % (Auto) Absolute Neuts (auto) Absolute Lymphs (auto) Nucleated RBC % PT INR Sodium Potassium Chloride Carbon Dioxide Anion Gap BUN Creatinine Estim Creat Clear Calc Est GFR (MDRD) Af Amer Est GFR (MDRD) Non-Af BUN/Creatinine Ratio Glucose Calcium Troponin I High Sens 7 B-Natriuretic Peptide 179.5 H Radiography Diagnostic Testing: Clinical Impression(s) from Imaging Studies Chest X-Ray 10/24/21 17:32 IMPRESSION: No acute cardiopulmonary disease or interval change. Electronically Signed: Dav Benjamin DO at 18:06 EST Reading Location ID and State: [address] [place] [address] Tel [phone], Service support , EKG A-fib: Interpretation: Atrial Fibrillation Comments: Atrial fibrillation, rate of 87. This is chronic Discharge Plan Triage Chief Complaint: Chest Pain ED Provider: Tyrel Kellogg Dx/Rx/DC Orders Clinical Impression: Atrial fibrillation, Essential hypertension, Dyspnea on exertion Instructions: Controlling High Blood Pressure, Your Heart's Electrical System, ED Dyspnea Prescriptions: No Action furosemide 40 mg tablet 40 mg PO DAILY Qty: 180 RF: 3 simvastatin 20 MG tablet 20 mg PO QHS RF: 0 esomeprazole magnesium [Nexium] 40 MG capsule 40 mg PO DAILY RF: 0 carbidopa-levodopa 1 TABLET tablet 25 - 100 tab PO TID RF: 0 ascorbic acid (vitamin C) [Vitamin C] 1,000 mg Tablet 1 g PO BID RF: 0 aspirin 81 mg Tablet 81 mg PO DAILY RF: 0 omega-3 fatty acids-vitamin E 1,000 mg Capsule 1 cap PO DAILY RF: 0 cholecalciferol (vitamin D3) [Vitamin D3] 25 mcg (1,000 unit) Tablet,Chewable 25 mcg PO DAILY RF: 0 Xtampza ER 18 mg cap,sprinkl,ER12hr(DONT CRUSH) 18 - 36 mg PO BID RF: 0 multivitamin Tablet 1 tab PO DAILY RF: 0 melatonin 10 mg Tablet 20 mg PO QHS RF: 0 carvedilol 12.5 mg tablet 6.25 mg PO BID RF: 0 vitamin E 200 unit Tablet 180 mg PO DAILY RF: 0 Eliquis 5 mg tablet 5 mg PO BID Qty: 180 RF: 4 diltiazem HCl 240 mg capsule,extended release 24hr 240 mg PO DAILY Qty: 90 RF: 3 Primary Care Provider: Mey Cornelius Referrals: Mey Cornelius MD [Primary Care Provider] - Activity Restrictions/Additional Instructions: Please keep your medication regimen, please keep your ablation appointment this upcoming Wednesday. Please return for any worsening shortness of breath, chest pain. Please perform frequent breaks when working. Disposition Disposition: Home, Self Care
[2021-10-24 17:28] VITALS: O2SAT 97
[2021-10-24] MEDS: Aspirin 81 MG TAB.CHEW 324 MG PO (17:30)
--- NOTE | 2021-10-24 17:32 | RAD_ITS ---
STUDY: X-RAY CHEST REASON FOR EXAM: Male, 66 years old. Chest pain radiating into the upper abdomen more so when bending over. Planned ablation for atrial fibrillation. TECHNIQUE: Single AP portable view of the chest. COMPARISON: 06/09/2021. FINDINGS: The lungs are clear and expanded. There is no demonstrated pleural abnormality. Normal size heart. Normal mediastinum and janel. Normal visualized pulmonary arteries. Normal visualized aortic arch and descending thoracic aorta. No osseous changes. Seen is anterior fusion lower cervical spine. There is no demonstrated abnormality of the visualized soft tissue structures of the upper abdomen. RAD/Chest 1 View (Portable) IMPRESSION: No acute cardiopulmonary disease or interval change. Electronically Signed: Dav Benjamin DO at 18:06 EST ,
[2021-10-24 17:43] LABS: Absolute Lymphocyte Count 1.35 X10^3/uL (0.83-4.51); Absolute Neutrophil Count 3.7 X10^3/uL (2.0-7.7); Basophil# 0.02 X10^3/uL; Basophil% 0.3 % (0-1); Eosinophil# 0.11 X10^3/uL; Eosinophils% 1.9 % (0-5); Hematocrit 42.2 % (40-54); Hemoglobin 14.4 g/dL (13.0-16.5); Lymphocyte # 1.35 X10^3/ul (0.83-4.51); Lymphocyte % 23.3 % (19-41); Mean Corp Hgb Conc 34.1 g/dL (32-36); Mean Corpuscular Hgb 30.4 pg (27.0-32.0); Mean Platelet Vol. 10.7 fl (6.2-12.0); Monocyte# 0.58 X10^3/uL; NRBC Flagged by Analyzer 0 % (0-5); Platelet Count 207 K/mm3 (150-450); RBC Distribution Width CV 13.3 % (11.6-14.6); RBC Distribution Width SD 43.1 fl (35.1-43.9); Red Blood Count 4.74 M/mm3 (4.6-6.2); White Blood Count 5.8 K/mm3 (4.4-11.0)
[2021-10-24 17:53] LABS: International Normalized Ratio 1.2; Prothrombin Time (Protime)PT. 14.5 SECONDS (11.7-14.9)
[2021-10-24 18:03] LABS: BNP,B-Type NATRIURETIC PEPTIDE 179.5 pg/mL (0-100)
[2021-10-24 18:38] VITALS: PULSE 83; RESP 15; O2SAT 96
[2021-10-24 18:47] LABS: Anion Gap 5 (5-15); BUN 19 mg/dL (7-18); Calcium,Total 9.1 mg/dL (8.5-10.1); Chloride 108 mmol/L (98-107); EST Glomerular Filtration Rate 80 mL/min (>60); Est Glom Filt Rate - Afr Amer 97 mL/min (>60); Estimated Creatinine Clearance 74.63 ml/min; Glucose 91 mg/dL (74-106); Potassium 3.6 mmol/L (3.5-5.1); Sodium Level 141 mmol/L (136-145); Troponin-I HS 4 pg/mL (3.0-78.0)
[2021-10-24 19:00] VITALS: BP 152/113; PULSE 89; RESP 18; O2SAT 96
[2021-10-24 19:34] LABS: Troponin-I HS 7 pg/mL (3.0-78.0)
[2021-10-24 20:31] VITALS: BP 140/90; PULSE 82; RESP 20; O2SAT 97
== END 2021-10-24 20:41 | disposition home or self-care (01) ==
PROVIDERS: Emergency Provider Nurse Practitioner; PCP Internal Medicine; Visit Provider Nurse Practitioner
DX: I48.91 Unspecified atrial fibrillation (principal); G20 Parkinson's disease; M06.9 Rheumatoid arthritis, unspecified; E11.9 Type 2 diabetes mellitus without complications; Z87.891 Personal history of nicotine dependence; E78.5 Hyperlipidemia, unspecified; I10 Essential (primary) hypertension; Z85.828 Personal history of other malignant neoplasm of skin; G89.29 Other chronic pain; Z79.82 Long term (current) use of aspirin; Z79.899 Other long term (current) drug therapy; Z79.01 Long term (current) use of anticoagulants; E66.9 Obesity, unspecified; Z68.39 Body mass index [BMI] 39.0-39.9, adult; R06.00 Dyspnea, unspecified
CPT/HCPCS: 71045; 80048; 83880; 84484; 85025; 85610; 93005; 99284; A4216

== ENCOUNTER 2022-11-14 16:46 | Emergency (ER) | payer MEDICARE, SELFPAY ==
[2022-11-14 16:47] VITALS: BP 179/103; PULSE 70; RESP 18; TEMP 36.2; O2SAT 95; BMI 41.0
--- NOTE | 2022-11-14 17:35 | EKG12_ITS ---
Test Reason : HIGH BLOOD PRESSURE Blood Pressure : / mmHG Vent. Rate : 065 BPM Atrial Rate : 065 BPM P-R Int : 160 ms QRS Dur : 092 ms QT Int : 424 ms P-R-T Axes : 052 026 032 degrees QTc Int : 440 ms Normal sinus rhythm Normal ECG Confirmed by LUISANA CARLSON, MICHELLE ([id number]), features editor MARNIE JURADO ([id number]) on 11/16/2022 1:32:22 PM Referred By: LORELEI Confirmed By:MICHELLE LIEBERMAN MD
--- NOTE | 2022-11-14 17:36 | EDS_ITS ---
HPI History of Present Illness Chief Complaint: Hypertension Narrative Narrative: 67-year-old male presenting with lightheadedness. He states he has had this for about a week. Its every time he stands up. He does not have vertigo. Patient denies nausea, vomiting. He denies chest pain or shortness of breath. He states he is eating and drinking normally. He states he is making normal urine and stool. He reports that he previously had A-fib and had an ablation. Its been successful. He has not had return of it. He is anticoagulated on Eliquis. [facility] Medical History Atrial fibrillation Atrial flutter Gonzalez esophagus Chronic pain Diabetes Essential hypertension Neck pain with history of cervical spinal surgery On amiodarone therapy (04/21/21) Parkinson disease Rheumatoid arthritis Skin cancer Home Medications carbidopa 25 mg-levodopa 100 mg tablet 25 - 100 tab PO TID parkinsons 10/14/17 [History Last Taken 03/16/21] esomeprazole magnesium 40 mg capsule,delayed release (Nexium) 40 mg PO DAILY 10/14/17 [History Last Taken 04/21/21] simvastatin 20 mg tablet 20 mg PO QHS cholesterol 10/14/17 [History Last Taken 03/15/21] ascorbic acid (vitamin C) 1,000 mg tablet (Vitamin C) 1 g PO BID 03/16/21 [History Last Taken 03/16/21] aspirin 81 mg tablet 81 mg PO DAILY 03/16/21 [History Last Taken Unknown] cholecalciferol (vitamin D3) 25 mcg (1,000 unit) chewable tablet (Vitamin D3) 25 mcg PO DAILY vitamin 03/16/21 [History Last Taken 03/16/21] multivitamin 1 tab PO DAILY vitamin 03/16/21 [History Last Taken 03/15/21] omega-3 fatty acids-vitamin E 1,000 mg capsule 1 cap PO DAILY cholesterol 03/16/21 [History Last Taken 03/15/21] oxycodone myristate 18 mg capsule sprinkle extended release 12hr(DON'T CRUSH) (Xtampza ER) 18 - 36 mg PO BID pain medication 03/16/21 [History Last Taken 03/16/21] diltiazem HCl 240 mg capsule,extended release 24 hr 240 mg PO DAILY this is a dose change from previous #90 caps 09/04/21 [Rx Last Taken Unknown] furosemide 40 mg tablet 40 mg PO DAILY #180 tabs 09/16/21 [Rx Last Taken Unknown] carvedilol 12.5 mg tablet 6.25 mg PO BID 10/24/21 [History Last Taken Unknown] melatonin 10 mg tablet 20 mg PO QHS 10/24/21 [History Last Taken Unknown] vitamin E 200 unit tablet 180 mg PO DAILY 10/24/21 [History Last Taken Unknown] apixaban 5 mg tablet (Eliquis) 5 mg PO BID #180 tabs 07/10/22 [Rx Last Taken Unknown] turmeric 400 mg capsule 1,000 mg PO DAILY 11/14/22 [History Last Taken Unknown] Allergy/AdvReac Type Severity Reaction Status Date / Time fentanyl Allergy Rash Verified 11/10/21 12:40 Iodinated Contrast Media Allergy Rash Verified 11/10/21 12:40 [CONTRASTS] morphine Allergy Rash Verified 11/10/21 12:40 lisinopril AdvReac Intermediate Dry Verified 11/10/21 12:40 hacking cough losartan AdvReac Dry Verified 11/10/21 12:40 hacking cough Family History Mother Myocardial infarction Father Liver cirrhosis Sister Atrial fibrillation Cancer Hypertension Hyperlipidemia Brother Atrial fibrillation Hypertension Unknown Myocardial infarction Two cousins Other Heart disease Surgical History History of appendectomy History of cardiac radiofrequency ablation History of cardioversion (04/21/21) History of left heart catheterization (03/17/21) Social History Smoking Status: Former smoker quit date: 08/23/00 pack-years: 45 ROS ROS ED Constitutional Constitutional ED: Denies chills or fever(s) Eyes Eyes: Denies change in vision or diplopia ENT ENT ED: Denies rhinorrhea or sore throat Cardiovascular Cardiovascular: Reports other Details: Lightheadedness ; Denies chest pain or palpitations Respiratory/Chest Respiratory/Chest: Denies cough or dyspnea Gastrointestinal Gastrointestinal: Denies abdominal pain, nausea or vomiting Genitourinary Genitourinary ED: Denies dysuria or hematuria Musculoskeletal Musculoskeletal: Denies arthralgias or back pain Integumentary Denies abscess or Abrasions Neurologic Neurologic: Denies headache(s) or paresthesias EXAM Physical Exam Const Vital Signs: 11/14/22 16:47 11/14/22 17:09 11/14/22 18:11 Temperature 97.2 F L Temperature Source Temporal Pulse Rate 70 Pulse Rate [Lying] 66 Pulse Rate [Sitting (for 1 minute prior to obtaining)] 64 Pulse Rate [Standing (for 1 minute prior to obtaining)] 66 Respiratory Rate 18 Respiratory Effort Normal Non-Labored Respiratory Pattern Normal Blood Pressure 179/103 H Blood Pressure [Lying] 144/77 H Blood Pressure [Sitting (for 1 minute prior to obtaining)] 143/83 H Blood Pressure [Standing (for 1 minute prior to obtaining)] 141/79 H Blood Pressure Mean 128 Blood Pressure Mean [Lying] 99 Blood Pressure Mean [Sitting (for 1 minute prior to obtaining)] 103 Blood Pressure Mean [Standing (for 1 minute prior to obtaining)] 99 Pulse Ox 95 Oxygen Delivery Method Room Air Positive well nourished and obese General Appearance ED: NAD Nutritional Appearance: obese HEENT Reports moist mucous membranes Eyes PERRL and EOMs intact bilaterally Chest Wall inspection of chest normal and palpation of chest normal Resp normal respiratory effort and clear to auscultation bilaterally Auscultation: Negative for rales, rhonchi or wheezes Cardio regular rate and regular rhythm GI normal to inspection, nondistended, normoactive bowel sounds Extremity normal to inspection General Extremety ED: Negative for edema or tenderness General Extremity: Negative for edema Neuro oriented x3 and CN's II-XII intact bilaterally Sensorium / Orientation: alert Motor Exam: strength 5/5 throughout Psych mental status grossly normal Skin no rashes or lesions noted MDM MDM MDM Narrative Medical decision making narrative: Patient presenting with lightheadedness. Is been going on for about a week. Patient denies any chest pain or shortness of breath. Patient states he takes his Lasix. Differential at this point is orthostatic hypotension, dehydration, electrolyte abnormalities, dysrhythmia. Patient concern for cardiac etiology has a history of A-fib. He has not noted his heart rate being increased. Obtain an EKG which on my interpretation shows a normal sinus rhythm with a ventricular of 65 bpm without sign of ischemic change or dysrhythmia. CBC was obtained to assess white blood cell count, hemoglobin and platelets, differential. CMP to assess liver function, renal function, glucose, anion gap. CBC is unremarkable. BMP shows normal renal function and electrolytes. Glucose elevated 144 without anion gap. LFTs are all normal. Orthostatic vital signs were performed and are normal. Chest x-ray was obtained and on my interpretation shows no acute cardiopulmonary process. At this point the patient is a negative work-up. I recommend follow-up with his primary care physician to ensure resolution. I did counselor nurses' association him to take a blood pressure diary to his doctor at follow-up. His initial blood pressure was 179/103. Discharge blood pressure 141/79. Return precautions were discussed. Impression: 1. lightheadedness Lab Data Attestation: I reviewed the patient's lab results. Labs: Laboratory Results - last 24 hr 11/14/22 11/14/22 17:42 17:42 WBC 5.9 RBC 4.83 Hgb 14.8 Hct 43.4 MCV 89.9 MCH 30.6 MCHC 34.1 RDW Std Deviation 40.4 RDW Coeff of Mele 12.3 Plt Count 185 MPV 10.2 Immature Gran % (Auto) 0.300 Neut % (Auto) 65.0 Lymph % (Auto) 22.9 Mckean % (Auto) 9.8 Eos % (Auto) 1.5 Baso % (Auto) 0.5 Absolute Neuts (auto) 3.8 Absolute Lymphs (auto) 1.35 Nucleated RBC % 0 Sodium 142 Potassium 3.5 Chloride 110 H Carbon Dioxide 26.0 Anion Gap 6 BUN 17 Creatinine 1.20 Estim Creat Clear Calc 63.37 Est GFR (MDRD) Af Amer 78 Est GFR (MDRD) Non-Af 65 BUN/Creatinine Ratio 14.2 Glucose 144 H Calcium 8.4 L Total Bilirubin 0.40 AST 20 ALT 37 Alkaline Phosphatase 54 Troponin I High Sens 5 Total Protein 6.8 Albumin 3.8 Globulin 3.0 Albumin/Globulin Ratio 1.3 Radiography Diagnostic Testing: Clinical Impression(s) from Imaging Studies Chest X-Ray 11/14/22 17:50 IMPRESSION: No acute cardiopulmonary disease or interval change. Electronically Signed: Dav Benjamin DO at 18:12 EDT Reading Location ID and State: [facility] / [place] Tel [phone], Service support , Discharge Plan Triage Chief Complaint: Hypertension ED Provider: Geraldo Ward Dx/Rx/DC Orders Instructions: ED Dizziness, Uncertain Cause, ED Hypertension, Established Prescriptions: No Action furosemide 40 mg tablet 40 mg PO DAILY Qty: 180 3RF simvastatin 20 MG tablet 20 mg PO QHS esomeprazole magnesium [Nexium] 40 MG capsule 40 mg PO DAILY carbidopa-levodopa 1 TABLET tablet 25 - 100 tab PO TID Rx Instructions: Patient takes 1.5 tablets BID and 1 tablet @ lunch time ascorbic acid (vitamin C) [Vitamin C] 1,000 mg Tablet 1 g PO BID aspirin 81 mg Tablet 81 mg PO DAILY omega-3 fatty acids-vitamin E 1,000 mg Capsule 1 cap PO DAILY cholecalciferol (vitamin D3) [Vitamin D3] 25 mcg (1,000 unit) Tablet,Chewable 25 mcg PO DAILY Xtampza ER 18 mg cap,sprinkl,ER12hr(DONT CRUSH) 18 - 36 mg PO BID Label Comments: TAKE 1 CAPSULE BY MOUTH TWICE DAILY multivitamin Tablet 1 tab PO DAILY melatonin 10 mg Tablet 20 mg PO QHS carvedilol 12.5 mg tablet 6.25 mg PO BID Rx Instructions: must administer with a meal/food vitamin E 200 unit Tablet 180 mg PO DAILY turmeric 400 mg Capsule 1,000 mg PO DAILY diltiazem HCl 240 mg capsule,extended release 24hr 240 mg PO DAILY Qty: 90 3RF Eliquis 5 mg tablet 5 mg PO BID Qty: 180 4RF Primary Care Provider: Mey Cornelius Referrals: Mey Cornelius MD [Primary Care Provider] - Disposition Disposition: Home, Self Care
--- NOTE | 2022-11-14 17:50 | RAD_ITS ---
STUDY: X-RAY CHEST REASON FOR EXAM: Male, 67 years old. Near syncope. TECHNIQUE: Single AP portable view of the chest. COMPARISON: October 24, 2021. FINDINGS: The lungs are clear and expanded. There is no demonstrated pleural abnormality. Normal size heart. Normal mediastinum and janel. Normal visualized pulmonary arteries. Normal visualized aortic arch and descending thoracic aorta. Normal visualized thoracic spine. Again seen is anterior fusion lower cervical spine. Normal visualized ribs, clavicles, and shoulders. There is no demonstrated abnormality of the visualized soft tissue structures of the upper abdomen. RAD/Chest 1 View (Portable) IMPRESSION: No acute cardiopulmonary disease or interval change. Electronically Signed: Dav Benjamin DO at 18:12 EDT ,
[2022-11-14 17:54] LABS: Absolute Lymphocyte Count 1.35 X10^3/uL (0.83-4.51); Absolute Neutrophil Count 3.8 X10^3/uL (2.0-7.7); Basophil# 0.03 X10^3/uL; Basophil% 0.5 % (0-1); Eosinophil# 0.09 X10^3/uL; Eosinophils% 1.5 % (0-5); Hematocrit 43.4 % (40-54); Hemoglobin 14.8 g/dL (13.0-16.5); Lymphocyte # 1.35 X10^3/ul (0.83-4.51); Lymphocyte % 22.9 % (19-41); Mean Corp Hgb Conc 34.1 g/dL (32-36); Mean Corpuscular Hgb 30.6 pg (27.0-32.0); Mean Corpuscular Volume 89.9 fL (80-94); Mean Platelet Vol. 10.2 fl (6.2-12.0); Monocyte# 0.58 X10^3/uL; Monocyte% 9.8 % (0-10); NRBC Flagged by Analyzer 0 % (0-5); Neutrophil # 3.82 X10^3/uL (2.7-7.7); Platelet Count 185 K/mm3 (150-450); RBC Distribution Width CV 12.3 % (11.6-14.6); RBC Distribution Width SD 40.4 fl (35.1-43.9); Red Blood Count 4.83 M/mm3 (4.6-6.2); White Blood Count 5.9 K/mm3 (4.4-11.0)
[2022-11-14 18:09] LABS: ALB/GLOB Ratio 1.3 RATIO (0.9-2.4); AST(SGOT) 20 U/L (15-37); Alanine Aminotransfer ALT/SGPT 37 U/L (16-61); Albumin, Serum 3.8 g/dL (3.2-5.0); Alkaline Phosphatase 54 U/L (45-117); Anion Gap 6 (5-15); BUN 17 mg/dL (7-18); BUN/Creat Ratio 14.2 RATIO (10-20); Calcium,Total 8.4 mg/dL (8.5-10.1); Chloride 110 mmol/L (98-107); EST Glomerular Filtration Rate 65 mL/min (>60); Est Glom Filt Rate - Afr Amer 78 mL/min (>60); Estimated Creatinine Clearance 63.37 ml/min; Glucose 144 mg/dL (74-106); Potassium 3.5 mmol/L (3.5-5.1); Protein, Total 6.8 g/dL (6.4-8.2); Sodium Level 142 mmol/L (136-145); Troponin-I HS 5 pg/mL (3.0-78.0)
[2022-11-14 18:11] VITALS: BP 141/79; BP 143/83; BP 144/77; PULSE 64; PULSE 66
[2022-11-14 19:13] VITALS: BP 141/79; PULSE 61; RESP 16; RESP 18; O2SAT 94
== END 2022-11-14 19:15 | disposition home or self-care (01) ==
PROVIDERS: Emergency Provider Student in an Organized Health Care Education/Training Program; PCP Internal Medicine; Visit Provider Student in an Organized Health Care Education/Training Program
DX: R42 Dizziness and giddiness (principal); E11.65 Type 2 diabetes mellitus with hyperglycemia; Z87.891 Personal history of nicotine dependence; I10 Essential (primary) hypertension; E66.9 Obesity, unspecified
CPT/HCPCS: 71045; 80053; 84484; 85025; 93005; 99284; A4216

== ENCOUNTER 2024-11-18 22:22 | Emergency (ER) | payer MEDICARE, SELFPAY ==
[2024-11-18 22:22] VITALS: BP 188/111; PULSE 70; RESP 16; TEMP 36.7; O2SAT 94; BMI 42.0
--- NOTE | 2024-11-18 22:50 | EDS_ITS ---
HPI History of Present Illness Chief Complaint: Upper Extremity Injury Informant: patient and spouse/S.O. Narrative Narrative: Patient is a 69-year-old male with past medical history of atrial fibrillation currently on Eliquis as well as hypertension and obstructive sleep apnea. He states on he was helping load items at work when he tripped and fell and landed on his right arm on the ground. He states that he believes he did not strike his head or have any loss of consciousness. He states he was able to get back up and felt woozy but states after a few minutes he returned to normal and continue to work. He states that he noticed his right forearm has been painful and swollen. He states he was on line and googled that he could have a potential blood clot in his right arm and therefore this concerned him and he presents for evaluation. 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) Atrial fibrillation On amiodarone therapy (04/21/21) Essential hypertension Skin cancer Rheumatoid arthritis Gonzalez esophagus Neck pain with history of cervical spinal surgery Chronic pain Atrial flutter Parkinson disease Diabetes Home Medications ?Medication ?Instructions ?Recorded ?Last Taken ?Type carbidopa 25 mg-levodopa 100 mg 25 - 100 tab PO TID pa rkinsons 10/14/17 03/16/21 History tablet esomeprazole magnesium 40 mg 40 mg PO DAILY 10/14/17 0 04/21/21 History capsule,delayed release (Nexium) simvastatin 20 mg tablet 20 mg PO QHS cholesterol 03/15/21 History ascorbic acid (vitamin C) 1,000 mg 1 g PO BID 03/16/21 03/16/21 History tablet (Vitamin C) aspirin 81 mg tablet 81 mg PO DAILY 03/16/21 Unkn own History cholecalciferol (vitamin D3) 25 25 mcg PO DAILY vitami n 03/16/21 03/16/21 History mcg (1,000 unit) chewable tablet (Vitamin D3) multivitamin 1 tab PO DAILY vitamin 03/1603/15/21 History omega-3 fatty acids-vitamin E 1 cap PO DAILY cholester ol 03/16/21 03/15/21 History 1,000 mg capsule oxycodone myristate 18 mg capsule 18 - 36 mg PO BID pa in medication 03/16/21 03/16/21 History sprinkle extended release 12hr(DON'T CRUSH) (Xtampza ER) diltiazem HCl 240 mg 240 mg PO DAILY this is a do se 09/04/21 Unknown Rx capsule,extended release 24 hr change from previous #9 0 caps furosemide 40 mg tablet 40 mg PO DAILY #180 tabs Unknown Rx carvedilol 12.5 mg tablet 6.25 mg PO BID 10/24/21 Unkn own History melatonin 10 mg tablet 20 mg PO QHS 10/24/21 Unknow n History vitamin E 200 unit tablet 180 mg PO DAILY 10/24/21 Unk nown History turmeric 400 mg capsule 1,000 mg PO DAILY 11/14/22 U nknown History apixaban 5 mg tablet (Eliquis) 5 mg PO BID #180 tabs 0 09/11/24 Unknown Rx Allergy/AdvReac Type Severity Reaction Status Date / Time fentanyl Allergy Rash Verified 11/18/24 22:23 Iodinated Contrast Media Allergy Rash Verified 11/18/24 22:23 (CONTRASTS) morphine Allergy Rash Verified 11/18/24 22:23 lisinopril AdvReac Intermediate Dry Verified 11/18/24 22:23 hacking cough losartan AdvReac Dry Verified 11/18/24 22:23 hacking cough Family History Mother Myocardial infarction Father Liver cirrhosis Sister Atrial fibrillation Cancer Hypertension Hyperlipidemia Brother Atrial fibrillation Hypertension Unknown Myocardial infarction Two cousins Other Heart disease Surgical History History of cardiac radiofrequency ablation History of cardioversion (04/21/21) History of left heart catheterization (03/17/21) History of appendectomy Social History Smoking Status: Former smoker quit date: 08/23/00 pack-years: 45 ROS ROS ED Constitutional Constitutional ED: Denies chills or fever(s) Eyes Eyes: Denies blurry vision or change in vision ENT ENT ED: Denies sore throat Cardiovascular Cardiovascular: Denies chest pain, palpitations or racing heartbeat Respiratory/Chest Respiratory/Chest: Reports cough; Denies dyspnea Gastrointestinal Gastrointestinal: Denies abdominal pain, diarrhea, nausea or vomiting Genitourinary Genitourinary ED: Denies dysuria Musculoskeletal Musculoskeletal: Reports other Details: Positive right forearm pain Integumentary Reports other Details: Positive bruising right forearm Neurologic Neurologic: Denies headache(s) or paresthesias Hematologic/Lymphatic Hematologic/Lymphatic: Reports easy bleeding and easy bruising EXAM Physical Exam Const Vital Signs: 11/18/24 22:22 Temperature 98.1 F Temperature Source Oral Pulse Rate 70 Respiratory Rate 16 Blood Pressure 188/111 H Blood Pressure Mean 136 Pulse Ox 94 Oxygen Delivery Method Room Air Positive well nourished, well developed and obese General Appearance ED: well developed Nutritional Appearance: obese HEENT HEENT Narrative: Normocephalic atraumatic No signs of depressed or basilar skull fracture Eyes PERRL and EOMs intact bilaterally Neck full ROM and supple Neck Narrative: No bony deformity or step-off of the cervical spine no midline tenderness to palpation Resp normal respiratory effort Resp Narrative: Breath sounds are diminished throughout with diffuse rhonchi consistent with patient's recent diagnosis of bronchial pneumonia no signs of respiratory distress Cardio regular rate and regular rhythm Back/Spine Back/Spine Narrative: No bony deformity or step-off of the thoracic or lumbar spine no midline tenderness to palpation Extremity Extremity Narrative: Right upper extremity is neurovascularly intact; AIN/PIN are intact and normal. Active range of motion is slightly decreased secondary to pain. There is soft tissue swelling and ecchymosis to the dorsal aspect of the distal third of the right forearm consistent with traumatic hematoma. No bony deformity or joint effusion. Compartments are soft and compressible going against compartment syndrome. Remainder of the exam is normal Neuro oriented x3, CN's II-XII intact bilaterally, moves all extremities, no focal motor deficits and no sensory deficits noted Sensorium / Orientation: alert Psych mental status grossly normal Skin Skin Narrative: Traumatic hematoma with soft tissue swelling to the right forearm as documented above MDM MDM MDM Narrative Medical decision making narrative: Patient arrived to ER hypertensive but has a past medical history of this. He reported a mechanical fall and therefore I felt no need for cardiac or syncope workup. He has a traumatic hematoma to the right forearm by physical exam. He does not have any findings of secondary infection such as cellulitis or abscess. No physical exam findings to suggest compartment syndrome. Patient could have a underlying forearm fracture so we discussed obtaining an x-ray but he states that he has been using his arm since following the fall without any real change and has low concern for fracture and therefore does not want an x- ray obtained. We also discussed obtaining a head CT based on his anticoagul ation use and fall. He once again states that he has been feeling normal since and without nausea vomiting or change in mental status he has low concern for underlying traumatic head injury such as subarachnoid or subdural hemorrhage and does not want a head CT. His main concern was potential DVT in his right forearm I assured him that as he is on Eliquis the chance of him forming this is extremely low. I will perform a venous duplex to cooperate this but I cannot perform 1 at this time of night. Therefore he will be given an outpatient order form to have a venous duplex obtained. As he is currently on Eliquis there is no need for anticoagulation in the ER. The patient is not tachycardic he does not have chest pain or pleuritic chest pain and my concern for a potential PE is extremely low once again because of his anticoagulation status. Therefore there is no need for further intervention at this time and is otherwise safe for discharge. 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 Instructions: ED Hematoma Prescriptions: No Action furosemide 40 mg tablet 40 mg PO DAILY Qty: 180 3RF simvastatin 20 MG tablet 20 mg PO QHS esomeprazole magnesium [Nexium] 40 MG capsule 40 mg PO DAILY carbidopa-levodopa 1 TABLET tablet 25 - 100 tab PO TID Rx Instructions: Patient takes 1.5 tablets BID and 1 tablet @ lunch time ascorbic acid (vitamin C) [Vitamin C] 1,000 mg Tablet 1 g PO BID aspirin 81 mg Tablet 81 mg PO DAILY omega-3 fatty acids-vitamin E 1,000 mg Capsule 1 cap PO DAILY cholecalciferol (vitamin D3) [Vitamin D3] 25 mcg (1,000 unit) Tablet,Chewable 25 mcg PO DAILY Xtampza ER 18 mg cap,sprinkl,ER12hr(DONT CRUSH) 18 - 36 mg PO BID Patient Comments: TAKE 1 CAPSULE BY MOUTH TWICE DAILY multivitamin Tablet 1 tab PO DAILY melatonin 10 mg Tablet 20 mg PO QHS carvedilol 12.5 mg tablet 6.25 mg PO BID Rx Instructions: must administer with a meal/food vitamin E 200 unit Tablet 180 mg PO DAILY turmeric 400 mg Capsule 1,000 mg PO DAILY diltiazem HCl 240 mg capsule,extended release 24hr 240 mg PO DAILY Qty: 90 3RF Eliquis 5 mg tablet 5 mg PO BID Qty: 180 4RF Other Ambulatory Orders: Venous Duplex US, Unilateral (Stat) Facility: [facility] - Location: [facility] Ordered By: Dr. Linus Zhu Primary Care Provider: Mey Cornelius Referrals: Mey Cornelius MD [Primary Care Provider] - Activity Restrictions/Additional Instructions: Please wear your Pa wrap for compression to help prevent further swelling and bleeding. Also ice the area for 10 to 20 minutes 2-3 times a day to help reduce pain and swelling. Return to the hospital for your outpatient venous duplex as directed to rule out DVT/blood clot. If you have any further concerns or worsening symptoms please return to the hospital/ER for repeat evaluation Print Language: Scottish Disposition Disposition: Home, Self Care Discharge Date/Time: 11/18/24 23:05
== END 2024-11-18 23:05 | disposition home or self-care (01) ==
LOC: ED 23:02
PROVIDERS: Emergency Provider Emergency Medicine; PCP Internal Medicine; Visit Provider Emergency Medicine
DX: S50.11XA Contusion of right forearm, initial encounter (principal); I48.91 Unspecified atrial fibrillation; E11.9 Type 2 diabetes mellitus without complications; Z87.891 Personal history of nicotine dependence; Z79.01 Long term (current) use of anticoagulants; I10 Essential (primary) hypertension; W01.0XXA Fall on same level from slipping, tripping and stumbling without subsequent striking against object, initial encounter; E66.9 Obesity, unspecified
CPT/HCPCS: 99282

== ENCOUNTER → 2024-11-19 | Outpatient (CLI) | payer MEDICARE, SELFPAY ==
--- NOTE | 2024-11-19 11:24 | VDUE_ITS ---
Reason For Study Reason For Study: Right arm pain Right Proximal Right jugular vein is spontaneous, widely patent, phasic, with no intraluminal echogenicity noted. Right subclavian vein is spontaneous, widely patent, phasic, with no intraluminal echogenicity noted. Right Lower Arm Right radial vein is compressible. Right ulnar vein is compressible. Right Arm Right axillary vein is spontaneous, patent, phasic, competent, compressible and demonstrates augmentation. Right brachial vein is compressible. Right cephalic vein is compressible. Right basilic vein is compressible. Nonvascularized structure noted in the right mid forearm at area of bruising that measures 0.33 x 0.73 x 0.84 cm. Procedure This was a unilateral right upper extremity venous doppler examination. A preliminary report was called and/or faxed to PCP: Dr. Cornelius. Performed as next day ED exam. VL/Venous Duplex US, Unilateral Interpretation Summary Deep veins of the right upper extremity are patent and compressible segmentally . There is no evidence of deep vein thrombosis. Superficial veins of the right upper extremity are patent and compressible segm entally. There is no evidence of superficial vein thrombosis. Nonvascularized structure noted in the right mid forearm at area of bruising th at measures 0.33 x 0.73 x 0.84 cm. Ordering Physician: Linus Zhu Referring Physician: Mey Cornelius M.D. Performed By: Courtney Almodovar RVT ???
== END | disposition home or self-care (01) ==
PROVIDERS: PCP Internal Medicine; Visit Provider Emergency Medicine
DX: M79.601 Pain in right arm (principal)
CPT/HCPCS: 93971